=== PATIENT | female | born 1970 | race Caucasian/White ===

== ENCOUNTER → 2017-01-18 | Outpatient (CLI) | payer OTHER ==
[~2017-01-18] MED LIST: ASPI1TAB; ATRV10T; FLT11013; GFN600TCR; IMMODIUM; LVT.05T; METH57CR; MULT-608; OMEP-10; PRAM0.5T4; SIME62.5; VERA120T2; WHEA1POW; [UNRECOGNIZED DRUG - CODE]
--- NOTE | 2017-01-18 11:31 | Diagnostic Imaging Report ---
INDICATION: Screening mammogram. COMPARISON: 11/15/2015. TECHNIQUE: Digital screening mammography was obtained with CAD. 3-dimensional tomosynthesis was reviewed. FINDINGS: The breast tissue is heterogeneously dense. No masses or suspicious calcifications are seen. IMPRESSION: Stable screening mammogram. No malignancy. ACR BI-RADS Category 1: Negative. Result letter will be mailed to the patient. Note: At least 10% of breast cancer is not imaged by mammography. Dictated by: Dictated on workstation # [id number]
== END ==
LOC: RAD 07:57
PROVIDERS: ATTEND Family Medicine
DX: Z12.31 Encounter for screening mammogram for malignant neoplasm of breast (principal)
CPT/HCPCS: 77067

== ENCOUNTER → 2017-03-31 | Outpatient (CLI) | payer OTHER | LOC: CARD 11:24 | PROVIDERS: ATTEND Family Medicine | DX: R01.1 Cardiac murmur, unspecified (principal) | CPT/HCPCS: 93306 ==

== ENCOUNTER → 2018-04-27 | Outpatient (CLI) | payer OTHER ==
[~2018-04-27] MED LIST changes: +RT-ALBUTEROL SULF 2.5 MG/3 ML PRE-MIX VIAL INH ONE
== END ==
LOC: RT 08:15
PROVIDERS: ATTEND Nurse Practitioner Family
DX: J45.909 Unspecified asthma, uncomplicated (principal); R06.00 Dyspnea, unspecified; G47.10 Hypersomnia, unspecified; K21.9 Gastro-esophageal reflux disease without esophagitis
CPT/HCPCS: 94060; 94726; 94729

== ENCOUNTER 2018-04-28 08:00 | Outpatient (CLI) | payer OTHER ==
[~2018-04-28 08:00] MED LIST changes: -RT-ALBUTEROL SULF 2.5 MG/3 ML PRE-MIX VIAL INH ONE
== END 2018-04-28 08:30 | disposition home or self-care (01) ==
LOC: SLEEP 08:00
PROVIDERS: ATTEND Nurse Practitioner Family
DX: J45.909 Unspecified asthma, uncomplicated (principal); R06.00 Dyspnea, unspecified; J30.2 Other seasonal allergic rhinitis; G47.10 Hypersomnia, unspecified; K21.9 Gastro-esophageal reflux disease without esophagitis; R06.83 Snoring

== ENCOUNTER → 2019-05-03 | Outpatient (CLI) | payer OTHER ==
[~2019-05-03] MED LIST changes: +RT-ALBUTEROL SULF 2.5 MG/3 ML PRE-MIX VIAL INH ONE
== END ==
LOC: RT 12:51
PROVIDERS: ATTEND Nurse Practitioner Family
DX: J44.9 Chronic obstructive pulmonary disease, unspecified (principal); J30.2 Other seasonal allergic rhinitis
CPT/HCPCS: 94060; 94726; 94729

== ENCOUNTER → 2019-12-15 | Outpatient (CLI) | payer OTHER ==
[~2019-12-15] MED LIST changes: +CATHETER FLUSH 10 ML SYR IV PRN; +HOLD METFORMIN - RECEIVED CONTRAST 20 ML VIAL IV SCH; +IOHEXOL 350 MG/ML 100 ML (OMNIPAQUE 350) VIAL IV ONE; +NS 100 ML (IVPB) BAG IV ONE; -RT-ALBUTEROL SULF 2.5 MG/3 ML PRE-MIX VIAL INH ONE
--- NOTE | 2019-12-15 09:29 | Diagnostic Imaging Report ---
PROCEDURE: CT angiography of the chest with contrast. TECHNIQUE: Multiple contiguous axial images were obtained through the chest after uneventful bolus administration of intravenous contrast. 3D reconstructed CTA MIP acquisitions were also performed. Auto Exposure Controls were utilized during the CT exam to meet ALARA standards for radiation dose reduction. INDICATION: Chest pain and shortness of areas as well as headache. No prior CT studies available for comparison. FINDINGS: Evaluation of the pulmonary arterial system is without evidence of thromboembolism. No filling defects are seen within central, lobar or segmental pulmonary arterial branches. The ascending thoracic aorta is mildly prominent measuring 4.1 cm AP. Transverse and descending thoracic aorta are normal caliber. There is no dissection. Note is made of an aberrant right subclavian artery, a normal variant. No pericardial or pleural fluid is detected. No pulmonary infiltrate, nodule or mass is detected. The upper abdomen is unremarkable. IMPRESSION: 1. No evidence of pulmonary embolism or thoracic aortic dissection. There is mild prominence of the ascending thoracic aorta. Follow-up could be obtained. Dictated by: Dictated on workstation # [id number]
== END ==
LOC: RAD 08:45
PROVIDERS: ATTEND Nurse Practitioner Family
DX: R07.9 Chest pain, unspecified (principal); R06.02 Shortness of breath; R51 Headache
CPT/HCPCS: 71275

== ENCOUNTER → 2020-01-04 | Outpatient (CLI) | payer OTHER ==
[~2020-01-04] MED LIST changes: -CATHETER FLUSH 10 ML SYR IV PRN; -HOLD METFORMIN - RECEIVED CONTRAST 20 ML VIAL IV SCH; -IOHEXOL 350 MG/ML 100 ML (OMNIPAQUE 350) VIAL IV ONE; -NS 100 ML (IVPB) BAG IV ONE
== END ==
LOC: CARD 13:01
PROVIDERS: ATTEND Internal Medicine Cardiovascular Disease
DX: I51.7 Cardiomegaly (principal); E78.5 Hyperlipidemia, unspecified
CPT/HCPCS: 93306

== ENCOUNTER → 2020-01-05 | Outpatient (CLI) | payer OTHER ==
[~2020-01-05] VITALS: Ht 152 cm; Wt 87.0 kg
[~2020-01-05] MED LIST changes: +CATHETER FLUSH 10 ML SYR IV PRN; +REGADENOSON 0.4 MG/5 ML SYR (LEXISCAN) IV ONE
[2020-01-05 08:58] VITALS: BP 143/98
--- NOTE | 2020-01-05 16:57 | STRESS TEST ---
DATE OF SERVICE: 01/05/2020 RESTING AND POST REGADENOSON TECHNETIUM-99M TETROFOSMIN SPECT IMAGING ORDERING PHYSICIAN: Dr. Holland. PRIMARY PHYSICIAN: Dr. Castillo. CLINICAL DIAGNOSIS: Palpitations, chest discomfort. Baseline images were carried out after injection of 10.96 mCi of technetium-99m Tetrofosmin. This was followed by 0.4 mg regadenoson and 29.7 mCi of technetium-99m Tetrofosmin for stress imaging. The electrocardiogram showed sinus rhythm at baseline. It did not change significantly with the regadenoson infusion. On the electrocardiogram, V2 appears to be misplaced, but there is no significant electrocardiographic change with the regadenoson infusion. The patient tolerated the procedure well. Review of images at rest and following stress does not indicate any significant perfusion defects consistent with myocardial ischemia or infarction. Some degree of diaphragmatic attenuation seen both at rest and following regadenoson infusion. Gated images show normal global left ventricular systolic function with normal regional wall motion. Left ventricular ejection fraction is calculated to be 71%. Left ventricular end diastolic volume is 37 mL. TID is absent (1.19). CONCLUSIONS: 1. No evidence of any significant myocardial ischemia or infarction on this study. 2. Normal regional wall motion. 3. Normal global left ventricular systolic function with a calculated ejection fraction 71%. Job ID: [id number] DocumentID: [id number] Dictated Date: 01/05/2020 12:52:08 Fire Sprinkler Designer Date: 01/05/2020 16:57:03 Dictated By: CHRIS HOLLAND MD, MA, FACP, FACC,
== END ==
LOC: CARD 07:02
PROVIDERS: ATTEND Internal Medicine Cardiovascular Disease
DX: E78.5 Hyperlipidemia, unspecified (principal); R00.2 Palpitations; R07.89 Other chest pain
CPT/HCPCS: 78452; 93017; A9502

== ENCOUNTER → 2020-01-19 | Outpatient (CLI) | payer OTHER ==
[~2020-01-19] MED LIST changes: -CATHETER FLUSH 10 ML SYR IV PRN; -REGADENOSON 0.4 MG/5 ML SYR (LEXISCAN) IV ONE
== END ==
LOC: CARD 13:30
PROVIDERS: ATTEND Nurse Practitioner Family
DX: R00.2 Palpitations (principal)
CPT/HCPCS: 93225; 93226

== ENCOUNTER 2020-08-15 12:56 | Outpatient (CLI) | payer OTHER ==
[~2020-08-15] VITALS: Ht 152.4 cm; Wt 84.9 kg
[2020-08-15] MEDS ORDERED: FAMO20TA3 PO (14:17)
[2020-08-15] MEDS ORDERED: SIMV20TA26 PO (14:17)
[2020-08-15] MEDS ORDERED: LEVO25CA4 PO (14:17)
[2020-08-15] MEDS ORDERED: RT-ALBUINH IH (14:17)
[2020-08-15] MEDS ORDERED: PRAM0.5T9 PO (14:17)
[2020-08-15] MEDS ORDERED: GUAI600T43 PO (14:17)
[2020-08-15] MEDS ORDERED: FLUT9.9S NS (14:17)
[2020-08-15] MEDS ORDERED: BUDE10.22 IH (14:17)
[2020-08-15] MEDS ORDERED: MONT10TA21 PO (14:17)
[2020-08-15] MEDS ORDERED: MV-M1TAB20 PO (14:17)
[2020-08-15] MEDS ORDERED: OMEP20CA18 PO (14:17)
[2020-08-15] MEDS ORDERED: CETI10TA49 PO (14:17)
[2020-08-15] MEDS ORDERED: PEDI300T11 PO (14:17)
== END 2020-08-15 14:38 | disposition home or self-care (01) ==
LOC: PREOP 12:56 → EDSTATUS 08-16 09:30
PROVIDERS: ATTEND Internal Medicine
DX: Z01.818 Encounter for other preprocedural examination (principal)

== ENCOUNTER 2020-08-23 07:29 | Day surgery (SDC) | payer OTHER ==
--- NOTE | 2020-08-12 08:03 | HISTORY AND PHYSICAL ---
DATE OF SERVICE: COLONOSCOPY HISTORY AND PHYSICAL DATE OF ADMISSION: 08/23/2020. REFERRING PRIMARY CARE PHYSICIAN: Jenniffer Badillo APRN. HISTORY OF PRESENT ILLNESS: The patient was referred for screening colonoscopy. She seems to be at higher than average risk as her father was diagnosed with colon cancer at the age of 47 roughly and with the colon cancer at the age of 49. She also had a grandfather and uncle on her father's side who had colon cancer. They were diagnosed with colon cancer, she believes, in their 60s. I performed her first colonoscopy six years ago. Since that time, she had no evidence for neoplasia. She had one small mid ascending colonic diverticulum at that time with no other abnormalities being noted. She reports intermittent abdominal cramping and some intermittent mild diarrhea symptoms suggestive of irritable bowel - D. She has just been started on Xifaxan and reports no problems with medications thus far, this is just her second day. She has noted no melena or bright red blood per rectum. PAST MEDICAL HISTORY: Significant for VSD repair at the age of [age]. She has a history of scoliosis, has a history of gastroesophageal reflux that has been under control on omeprazole. She had an EGD six years ago as well, which revealed no evidence for Cbeallos's change or erosive esophagitis. She reports restless leg syndrome. She states this chronically runs a mildly high white count and platelet count and has Milla's thyroiditis. PAST SURGICAL HISTORY: Other than ASD repair, she has had bilateral inguinal hernia repair at the age of 2 and tonsillectomy at the age of 4, hysterectomy and bilateral oophorectomy in 2008 for benign reasons. SOCIAL HISTORY: She is employed, with no past smoking history and no significant alcohol intake history. FAMILY HISTORY: As noted in the HPI. REVIEW OF SYSTEMS: CONSTITUTIONAL: The patient denies night sweats, chills, fever, change in weight. GASTROINTESTINAL: As noted in the history of present illness. CARDIOVASCULAR: The patient denies chest pain, syncope, presyncope, orthopnea, PND or pedal edema. PULMONARY: The patient denies cough, dyspnea at rest or dyspnea on exertion and denies wheezing. PHYSICAL EXAMINATION: GENERAL: Reveals a pleasant white female, who appeared to be in acute distress. VITAL SIGNS: Weight 179.4 pounds, heart rate 198 pounds, and blood pressure 120/80. HEENT: Unremarkable. CHEST: Clear. CARDIOVASCULAR: Reveals a regular rate and rhythm with a soft 1 to 2/6 systolic ejection murmur heard best at the left lower sternal border without evidence of S3 or S4. ABDOMEN: Soft, supple without mass, organomegaly or tenderness. No bruits noted. EXTREMITIES: Reveal no cyanosis, clubbing or edema. ASSESSMENT AND PLAN: The patient is set up for screening colonoscopy higher than average risk due to father at relatively young age, diagnosed with colon cancer at 47 and a grandfather and uncle also on the father's side diagnosed with colon cancer in their 60s. I thank you for the referral of this pleasant lady. Job ID: [id number] DocumentID: [id number] Dictated Date: 08/06/2020 10:43:40 Sales And Service Representative Date: 08/06/2020 11:26:18 Dictated By: BEATA JONES MD MTDD
[~2020-08-23] VITALS: Ht 152.4 cm; Wt 85.0 kg
[~2020-08-23 07:29] MED LIST changes: +BUDE10.22 IH; +CETI10TA49 PO; +FAMO20TA3 PO; +FLUT9.9S NS; +GUAI600T43 PO; +LACTATED RINGERS 1,000 ML IV ONE; +LEVO25CA4 PO; +MONT10TA21 PO; +MV-M1TAB20 PO; +OMEP20CA18 PO; +PEDI300T11 PO; +PRAM0.5T9 PO; +RT-ALBUINH IH; +SIMV20TA26 PO
[2020-08-23] MEDS ORDERED: LACTATED RINGERS 1,000 ML IV STA (07:36)
[2020-08-23] MEDS ORDERED: LIDOCAINE JELLY 2% 6 ML SYRINGE MM PRN (07:45)
[2020-08-23 07:53] VITALS: BP 150/100
[2020-08-23] MEDS ORDERED: MIDAZOLAM 2 MG/2 ML (VERSED) VIAL ONE (08:00)
[2020-08-23] MEDS ORDERED: PROPOFOL INJECTION 50 ML IV ONE (08:00)
[2020-08-23] MEDS ORDERED: LIDOCAINE JELLY 2% 6 ML SYRINGE ONE (08:17)
--- NOTE | 2020-08-23 08:49 | Pre-Op Note & Conscious Sedat ---
Pre-Operative Progress Note H&P Reviewed The H&P was reviewed, patient examined and no changes noted. Date H&P Reviewed: Aug 23, 2020 Time H&P Reviewed: 07:55 Conscious Sedation Pre-Proced ASA Score 2 For ASA 3 and 4: Consider anesthesia and medical clearance. Also, for patients with a history of failed moderate sedation consider anesthesia. Airway Lungs Heart ASA score ASA 1: a normal healthy patient ASA 2: a patient with a mild systemic disease (mid diabetes, controlled hypertension, obesity ASA 3: a patient with a severe systemic disease that limits activity (angina, COPD, prior Myocardial infarction) ASA 4: a patient with an incapacitating disease that is a constant threat to life (CHF, renal failure) ASA 5: a moribund patient not expected to survive 24 hrs. (ruptured aneurysm) ASA 6: a declared brain- patient whose organs are being harvested. For emergent operations, add the letter E after the classification Mallampati Classification Grade 3 Sedation Plan Analgesia, Amnesia, Plan communicated to team members, Discussed options with patient/fam, Discussed risks with patient/fam The patient is an appropriate candidate to undergo the planned procedure, sedation, and anesthesia. The patient immediately re-assessed prior to indication. BEATA JONES MD Aug 23, 2020 08:49
[2020-08-23 08:50] VITALS: BP 107/60
[2020-08-23 08:55] VITALS: BP 105/60
[2020-08-23 09:00] VITALS: BP 111/73
[2020-08-23 09:20] VITALS: BP 138/102
[2020-08-23 10:20] VITALS: BP 138/102
--- NOTE | 2020-08-23 19:23 | OPERATIVE REPORT ---
DATE OF SERVICE: COLONOSCOPY SUMMARY INDICATION FOR THE PROCEDURE: Screening, family history for colon cancer. DESCRIPTION OF PROCEDURE: The patient was placed in the left lateral decubitus position. Prior to undergoing colonoscopy, digital rectal evaluation was performed. Anal sphincter tone was normal and the perianal reflexes intact. No abnormalities were noted on digital inspection of anal canal or distal rectal vault. The colonoscope was then inserted into the rectum and under direct visualization advanced to cecum. The cecum was identified by identification of the ileocecal valve and cecal strap. Quality of prep was good. The patient did have an irritable bowel type response to air insufflation and colonic manipulation despite Diprivan anesthesia. FINDINGS: A diminutive polyp was noted at the rectosigmoid junction. It was biopsied and ablated with hot forcep with no subsequent blood loss. The sigmoid colon, descending colon, splenic flexure, transverse colon were unremarkable. Present in the distal ascending colon were 2 small diverticulum without evidence for diverticulitis. This was otherwise unremarkable and cecum was unremarkable as well. ASSESSMENT: One diminutive hyperplastic appearing polyp was removed from the rectosigmoid junction. We would advise consideration for repeat screening colonoscopy in 5 years secondary to multiple family members, one first first-degree relative with a history of colon cancer. I thank you for the referral of this pleasant lady. Job ID: [id number] DocumentID: [id number] Dictated Date: 08/23/2020 11:58:52 Underlay Stitcher Date: 08/23/2020 19:21:05 Dictated By: BEATA JONES MD MTDD
== END 2020-08-23 10:20 | disposition home or self-care (01) ==
LOC: ENDO 07:29
PROVIDERS: ATTEND Internal Medicine
DX: Z12.11 Encounter for screening for malignant neoplasm of colon (principal); K63.5 Polyp of colon; K57.30 Diverticulosis of large intestine without perforation or abscess without bleeding; I10 Essential (primary) hypertension; J44.9 Chronic obstructive pulmonary disease, unspecified; F41.9 Anxiety disorder, unspecified; F32.9 Major depressive disorder, single episode, unspecified; E03.9 Hypothyroidism, unspecified; K21.9 Gastro-esophageal reflux disease without esophagitis; G25.81 Restless legs syndrome; E66.9 Obesity, unspecified; Z68.36 Body mass index [BMI] 36.0-36.9, adult; Z79.899 Other long term (current) drug therapy; Z88.2 Allergy status to sulfonamides; Z88.8 Allergy status to other drugs, medicaments and biological substances; Z80.0 Family history of malignant neoplasm of digestive organs

== ENCOUNTER → 2021-04-07 | Outpatient (CLI) | payer OTHER ==
[~2021-04-07] MED LIST changes: -LACTATED RINGERS 1,000 ML IV ONE; +RT-ALBUTEROL SULF 2.5 MG/3 ML PRE-MIX VIAL INH ONE
== END ==
LOC: RT 08:00
PROVIDERS: ATTEND Nurse Practitioner Family
DX: J45.909 Unspecified asthma, uncomplicated (principal)
CPT/HCPCS: 94060; 94726; 94729

== ENCOUNTER 2023-01-12 15:07 | Observation (INO) | payer BC, OTHER ==
[~2023-01-12] VITALS: Ht 152 cm; Wt 77.0 kg
[~2023-01-12 15:07] MED LIST changes: +ALBU8.5H6 IH; -FLUT9.9S NS; +FLUT9.9S NSEACH; +MONT-47 PO; -MONT10TA21 PO; -RT-ALBUINH IH; -RT-ALBUTEROL SULF 2.5 MG/3 ML PRE-MIX VIAL INH ONE
--- NOTE | 2023-01-12 15:46 | ED Cardiac General ---
History of Present Illness General Chief Complaint: Cardiac/General Problems Stated Complaint: LOW HEART RATE - 45 Source: patient Exam Limitations: no limitations (JOYCE MEJIA APRN) History of Present Illness Date Seen by Provider: Jan 12, 2023 Time Seen by Provider: 15:25 Initial Comments 52-year-old female presents to the ER low heart rate in the 40s starting today. She states that all day she has felt "out of it" and exhausted. She states she worked out yesterday, and thought that maybe her O2 saturation was low. States that she used her home pulse ox which showed normal oxygen saturations but heart rate in the 40s. She denies fevers, chest pain, shortness of air. Reports that she feels possibly lightheaded, but more so just feels "out of it." She denies any recent illness. States that a couple days ago she had diarrhea due to her IBS. She does not take any beta-blockers. She does have hypothyroidism. (JOYCE MEJIA APRN) Allergies and Home Medications Allergies Coded Allergies: Sulfa (Sulfonamide Antibiotics) (Verified Allergy, Unknown, 11/14/08) diltiazem (Verified Allergy, Unknown, TAKES VERAPAMIL AT HOME, 11/14/08) Patient Home Medication List Home Medication List Reviewed: Yes (JOYCE MEJIA APRN) Albuterol Sulfate (Ventolin Hfa) 90 Mcg Hfa.aer.ad, 2 PUFF IH Q6H PRN for SHORTNESS OF BREATH, (Reported) Entered as Reported by: SUHAIL STEVENSON on 08/15/201416 Last Action: Reviewed Cetirizine HCl (Zyrtec) 10 Mg Tablet, 10 MG PO DAILY, (Reported) Entered as Reported by: SUHAIL STEVENSON on 08/15/201416 Last Action: Reviewed Cholecalciferol (Vitamin D3) (Vitamin D3) 25 Mcg (1000 Unit) Capsule, 25 MCG PO DAILY, (Reported) Entered as Reported by: EMMIE SUMMERS on 01/14/23 1010 Last Action: Reviewed Cyanocobalamin (Vitamin B-12) (Vitamin B-12) 1,000 Mcg Tab.subl, 1,000 MCG SL DAILY, (Reported) Entered as Reported by: EMMIE SUMMERS on 01/14/23 1010 Last Action: Reviewed Fluticasone Propionate (Flonase Allergy Relief) 50 Mcg/Actuation [place].susp, 1-2 SPRAY NSEACH DAILY, (Reported) Entered as Reported by: SUHAIL STEVENSON on 08/15/201416 Last Action: Reviewed Fluticasone/Umeclidin/Vilanter (Trelegy Ellipta 100-62.5-25) 100-62.5 Blst.w.dev, 1 PUFF INH DAILY, (Reported) Entered as Reported by: EMMIE SUMMERS on 01/14/23 101 Last Action: Reviewed Guaifenesin (Mucinex) 600 Mg Tab.er.12h, 600 MG PO DAILY, (Reported) Entered as Reported by: SUHAIL STEVENSON on 08/15/201416 Last Action: Reviewed Levothyroxine Sodium (Levothyroxine Sodium) 25 Mcg Tablet, 37.5 MG PO DAILY, (Reported) Entered as Reported by: EMMIE SUMMERS on 01/14/231009 Last Action: Reviewed Omeprazole (Omeprazole) 20 Mg Capsule.dr, 20 MG PO DAILY, (Reported) Entered as Reported by: SUHAIL STEVENSON on 08/15/201416 Last Action: Reviewed Pediatric Multivit Comb #25/FA (Flintstones Multivit Chew Tab) 300 Mcg Tab.chew, 1 EA PO DAILY, (Reported) Entered as Reported by: SUHAIL STEVENSON on 08/15/201416 Last Action: Reviewed Simvastatin (Simvastatin) 20 Mg Tablet, 20 MG PO DAILY, (Reported) Entered as Reported by: SUHAIL STEVENSON on 08/15/201416 Last Action: Reviewed Vit C/Zinc Citrate/Elderberry (AMENDIA Immune Health Gummy) 45 Mg-3.75 Mg-50 Mg Tab.chew, 1 EACH PO DAILY, (Reported) Entered as Reported by: EMMIE SUMMERS on 01/14/231009 Last Action: Reviewed Discontinued Medications Budesonide/Formoterol Fumarate (Symbicort 80-4.5 Mcg Inhaler) 10.2 Gm Hfa.aer.ad, 2 PUFF IH DAILY, (Reported) Discontinued Reason: No Longer Taking Entered as Reported by: SUHAIL STEVENSON on 08/15/201416 Last Action: Discontinued Famotidine (Acid Parole Officer (FAMOTIDINE)) 20 Mg Tablet, 20 MG PO HS, (Reported) Discontinued Reason: No Longer Taking Entered as Reported by: SUHAIL STEVENSON on 08/15/201416 Last Action: Discontinued Levothyroxine Sodium (Levothyroxine) 25 Mcg Capsule, 25 MCG PO DAILY, (Reported) Discontinued Reason: No Longer Taking Entered as Reported by: SUHAIL STEVENSON on 08/15/201416 Last Action: Discontinued Montelukast Sodium (Singulair) 10 Mg Tablet, 10 MG PO HS, (Reported) Discontinued Reason: No Longer Taking Entered as Reported by: SUHAIL STEVENSON on 08/15/201416 Last Action: Discontinued Mv-Mn/Iron/FA/Herbal Cmplx#190 (Vitamin D3 Complete Caplet) 1 Each Tablet, 1 EACH PO DAILY, (Reported) Discontinued Reason: No Longer Taking Entered as Reported by: SUHAIL STEVENSON on 08/15/201416 Last Action: Discontinued Pramipexole Di-HCl (Pramipexole Dihydrochloride) 0.5 Mg Tablet, 0.5 MG PO DAILY, (Reported) Discontinued Reason: No Longer Taking Entered as Reported by: SUHAIL STEVENSON on 08/15/201416 Last Action: Discontinued Ropinirole HCl (Ropinirole HCl) 0.25 Mg Tablet, 0.25 MG PO HS, (Reported) Entered as Reported by: EMMIE SUMMERS on 01/14/23 1010 Last Action: Reviewed Review of Systems Review of Systems Constitutional: see HPI (JOYCE MEJIA APRN) Past Hscjteo-Auffcr-Annoud Hx Past Medical History Surgeries: No Respiratory: Yes Asthma, COPD Cardiac: Yes (SLIGHTLY ENLARGED AORTA) Neurological: No Reproductive Disorders: Yes (FIBROID TUMOR) Sexually Transmitted Disease: No Genitourinary: No Gastrointestinal: Yes (IBS- DIARRHEA) Musculoskeletal: No Endocrine: Yes Hypothyroidsim HEENT: No Cancer: No Psychosocial: Yes Anxiety, Depression Blood Disorders: No (JOYCE MEJIA APRN) Family Medical History Colon cancer Physical Exam Vital Signs Vital Signs - First Documented 01/12/23 15:15 Temp 37.1 Pulse 53 Resp 15 B/P (MAP) 121/92 (102) Pulse Ox 97 O2 Delivery Room Air (GABO JC MD) Vital Signs Capillary Refill : (JOYCE MEJIA APRN) Height, Weight, BMI Height: 4'12.00" Weight: 173lbs. oz. 78.432715xj; 36.59 BMI Method: General Appearance: No Apparent Distress, WD/WN Neck: Normal Inspection, Supple Respiratory: Lungs Clear, Normal Breath Sounds, No Accessory Muscle Use, No Respiratory Distress Cardiovascular: Bradycardia (Fluctuates between sinus rhythm and bradycardia arrhythmia) Extremity: Normal Inspection, Normal Range of Motion Neurologic/Psychiatric: Alert, Normal Mood/Affect Skin: Normal Color, Warm/Dry (JOYCE MEJIA APRN) Progress/Results/Core Measures Results/Orders Lab Results Laboratory Tests Test 01/12/23 15:35 Range/Units White Blood Count 12.5 H 4.3-11.0 10^3/uL Red Blood Count 5.21 H 3.80-5.11 10^6/uL Hemoglobin 14.9 11.5-16.0 g/dL Hematocrit 45 35-52 % Mean Corpuscular Volume 87 80-99 fL Mean Corpuscular Hemoglobin 29 25-34 pg Mean Corpuscular Hemoglobin Concent 33 32-36 g/dL Red Cell Distribution Width 13.4 10.0-14.5 % Platelet Count 331 130-400 10^3/uL Mean Platelet Volume 9.5 9.0-12.2 fL Immature Granulocyte % (Auto) 0 % Neutrophils (%) (Auto) 66 42-75 % Lymphocytes (%) (Auto) 24 12-44 % Monocytes (%) (Auto) 6 0-12 % Eosinophils (%) (Auto) 3 0-10 % Basophils (%) (Auto) 0 0-10 % Neutrophils # (Auto) 8.3 H 1.8-7.8 X 10^3 Lymphocytes # (Auto) 3.0 1.0-4.0 X 10^3 Monocytes # (Auto) 0.7 0.0-1.0 X 10^3 Eosinophils # (Auto) 0.4 H 0.0-0.3 10^3/uL Basophils # (Auto) 0.0 0.0-0.1 10^3/uL Immature Granulocyte # (Auto) 0.0 0.0-0.1 10^3/uL Prothrombin Time 13.0 12.2-14.7 SEC INR Comment 1.0 0.8-1.4 Activated Partial Thromboplast Time 38 H 24-35 SEC Sodium Level 141 135-145 MMOL/L Potassium Level 3.7 3.6-5.0 MMOL/L Chloride Level 108 H 98-107 MMOL/L Carbon Dioxide Level 22 21-32 MMOL/L Anion Gap 11 5-14 MMOL/L Blood Urea Nitrogen 18 7-18 MG/DL Creatinine 0.83 0.60-1.30 MG/DL Estimat Glomerular Filtration Rate 84 BUN/Creatinine Ratio 22 Glucose Level 88 70-105 MG/DL Calcium Level 9.8 8.5-10.1 MG/DL Corrected Calcium 9.5 8.5-10.1 MG/DL Magnesium Level 2.1 1.6-2.4 MG/DL Total Bilirubin 0.7 0.1-1.0 MG/DL Aspartate Amino Transf (AST/SGOT) 17 5-34 U/L Alanine Aminotransferase (ALT/SGPT) 18 0-55 U/L Alkaline Phosphatase 68 40-136 U/L Troponin I < 0.028 <0.028 NG/ML Total Protein 7.7 6.4-8.2 GM/DL Albumin 4.4 3.2-4.5 GM/DL Thyroid Stimulating Hormone (TSH) 1.17 0.35-4.94 UIU/ML (GABO JC MD) My Orders Orders - GABO JC MD Ekg Tracing (01/12/23 15:15) (GABO JC MD) Vital Signs/I&O 01/12/23 15:15 Temp 37.1 Pulse 53 Resp 15 B/P (MAP) 121/92 (102) Pulse Ox 97 O2 Delivery Room Air (GABO JC MD) Progress Progress Note : Progress Note Patient seen and evaluated, resting comfortably in bed, no acute distress. Based on exam and symptoms, work-up initiated including CBC, CMP, magnesium, troponin, TSH, EKG. 1620 personnel monitor has been showing a possible sinus block. Heart rate goes into the 40s, as low as 38, with a rhythm that does not have a P wave. I called and spoke with Dr. Pulido, patient's card lacer jacquard, regarding patient's abnormal rhythm. He is going to have Dr. Baugh, the card lacer jacquard on-call, come down and see the patient. Dr. Holland and Dr. Baugh both agree that patient should be admitted for observation. Dr. Baugh states that patient is having sinus pauses with a junctional escape rhythm. They would like patient to be n.p.o. at midnight in case she requires a pacemaker placement tomorrow. They would like her in the ICU or stepdown unit. Labs reviewed. CBC shows slightly elevated WBC 12.5. CMP grossly normal. Troponin negative. TSH normal. Coags normal. [address] Olguin, hospitalist, for admission. She agrees to admit patient. She will place admission orders. (JOYCE MEJIA APRN) Initial ECG Impression Date: Jan 12, 2023 Initial ECG Impression Time: 15:27 Initial ECG Rate: 60 Initial ECG Rhythm: Normal Sinus (Occasional sinus pause) Initial ECG Intervals: Normal Initial ECG Impression: Nonspecific Changes (Sinus pause) Initial ECG Comparisson: Changed (JOYCE MEJIA APRN) Departure Communication (Admissions) Time/Spoke to Admitting Phy: 16:42 Dr. Olguin, see progress note. Time/Spoke to Consulting Phy: 16:[address] Baugh, cardiology, see progress note. (JOYCE MEJIA APRN) Impression Primary Impression: Bradyarrhythmia Disposition: ADMITTED INPATIENT Condition: Stable Admissions Decision to Admit Reason: Admit from ER (General) Decision to Admit/Date: Jan 12, 2023 Time/Decision to Admit Time: 16:20 (JOYCE MEJIA APRN) Departure-Patient Inst. Referrals: SULLY MUÑOZ MD (PCP/Family) Primary Care Physician ATTENDING PHYSICIAN NOTE: I was physically present as attending physician in the emergency department during the care of this patient, but I was not directly involved in the decision making or delivery of care for this patient. (GABO JC MD) JOYCE MEJIA APRN Jan 12, 2023 15:46 GABO JC MD Jan 17, 2023 05:00
[2023-01-12 15:48] LABS: BASOPHILS % (AUTO) 0 % (0-10); EOSINOPHILS # (AUTO) 0.4 10^3/uL (0.0-0.3); EOSINOPHILS % (AUTO) 3 % (0-10); HEMATOCRIT 45 % (35-52); HEMOGLOBIN 14.9 g/dL (11.5-16.0); LYMPHOCYTES % (AUTO) 24 % (12-44); MEAN CORPUSCULAR HEMOGLOBIN 29 pg (25-34); MEAN CORPUSCULAR HGB CONC 33 g/dL (32-36); MEAN CORPUSCULAR VOLUME 87 fL (80-99); MEAN PLATELET VOLUME 9.5 fL (9.0-12.2); MONOCYTES # (AUTO) 0.7 X 10^3 (0.0-1.0); MONOCYTES % (AUTO) 6 % (0-12); NEUTROPHILS # (AUTO) 8.3 X 10^3 (1.8-7.8); NEUTROPHILS % (AUTO) 66 % (42-75); PLATELET COUNT 331 10^3/uL (130-400); WHITE BLOOD COUNT 12.5 10^3/uL (4.3-11.0)
[2023-01-12 15:57] LABS: ALBUMIN 4.4 GM/DL (3.2-4.5); CHLORIDE 108 MMOL/L (98-107); POTASSIUM 3.7 MMOL/L (3.6-5.0); SODIUM 141 MMOL/L (135-145)
[2023-01-12 15:59] LABS: CALCIUM 9.8 MG/DL (8.5-10.1)
[2023-01-12 16:00] LABS: GLUCOSE 88 MG/DL (70-105); TOTAL PROTEIN 7.7 GM/DL (6.4-8.2)
[2023-01-12 16:01] LABS: CARBON DIOXIDE 22 MMOL/L (21-32)
[2023-01-12 16:02] LABS: BILIRUBIN,TOTAL 0.7 MG/DL (0.1-1.0)
[2023-01-12 16:03] LABS: ALKALINE PHOSPHATASE 68 U/L (40-136); CREATININE SERUM 0.83 MG/DL (0.60-1.30); GFR ESTIMATED 84
[2023-01-12 16:04] LABS: BUN/CREATININE RATIO 22
[2023-01-12 16:06] LABS: ALANINE AMINOTRANSFERASE 18 U/L (0-55); MAGNESIUM 2.1 MG/DL (1.6-2.4)
[2023-01-12] MEDS ORDERED: NS IV 1000 ML 1,000 ML IV SCH (16:30)
--- NOTE | 2023-01-12 16:44 | Consultation-Cardiology ---
HPI-Cardiology Cardiology Consultation Date of Consultation 01/12/23 Date of Admission Time Seen by Provider: 16:39 Indication: Symptomatic bradycardia HPI 52-year-old lady with history of hypothyroidism. Hyperlipidemia. Patient has been having generalized weakness and loss of energy for the last 24 hours, came into the emergency room and noted to have sinus rhythm with multiple episodes of bradycardia and escape junctional rhythm. She denied any full syncope. No chest pain. No palpitation. Home Medications & Allergies Allergies: Coded Allergies: Diltiazem (Verified Allergy, Unknown, TAKES VERAPAMIL AT HOME, 11/14/08) Sulfa (Sulfonamide Antibiotics) (Verified Allergy, Unknown, 11/14/08) Home Medication List Reviewed: Yes [facility] Hx Patient Social History Marital Status: Employed/Student: employed 2[employer] Smoke Exposure: No Recent Hopitalizations: No Alcohol Use?: Yes Past Medical History Discussed below Family Medical History Significant Family History: No Pertinent Family Hx Family History: Colon cancer Review of Systems-General Review of Systems Constitutional: see HPI, malaise, weakness EENTM: see HPI, no symptoms reported Respiratory: see HPI; No cough; dyspnea on exertion; No hemoptysis, No orthopnea, No phlegm, No short of breath, No stridor, No wheezing, No other Cardiovascular: see HPI; No chest pain, No edema, No Hx of Intervention, No pal pitations, No syncope, No vascular heart diseas, No other Gastrointestinal: no symptoms reported, see HPI Genitourinary: no symptoms reported, see HPI Musculoskeletal: no symptoms reported, see HPI Skin: no symptoms reported, see HPI Psychiatric/Neurological: No Symptoms Reported, See HPI Reviewed Test Results Reviewed Test Results Lab Laboratory Tests Test 01/12/23 15:35 Range/Units White Blood Count 12.5 H 4.3-11.0 10^3/uL Red Blood Count 5.21 H 3.80-5.11 10^6/uL Hemoglobin 14.9 11.5-16.0 g/dL Hematocrit 45 35-52 % Mean Corpuscular Volume 87 80-99 fL Mean Corpuscular Hemoglobin 29 25-34 pg Mean Corpuscular Hemoglobin Concent 33 32-36 g/dL Red Cell Distribution Width 13.4 10.0-14.5 % Platelet Count 331 130-400 10^3/uL Mean Platelet Volume 9.5 9.0-12.2 fL Immature Granulocyte % (Auto) 0 % Neutrophils (%) (Auto) 66 42-75 % Lymphocytes (%) (Auto) 24 12-44 % Monocytes (%) (Auto) 6 0-12 % Eosinophils (%) (Auto) 3 0-10 % Basophils (%) (Auto) 0 0-10 % Neutrophils # (Auto) 8.3 H 1.8-7.8 X 10^3 Lymphocytes # (Auto) 3.0 1.0-4.0 X 10^3 Monocytes # (Auto) 0.7 0.0-1.0 X 10^3 Eosinophils # (Auto) 0.4 H 0.0-0.3 10^3/uL Basophils # (Auto) 0.0 0.0-0.1 10^3/uL Immature Granulocyte # (Auto) 0.0 0.0-0.1 10^3/uL Prothrombin Time 13.0 12.2-14.7 SEC INR Comment 1.0 0.8-1.4 Activated Partial Thromboplast Time 38 H 24-35 SEC Sodium Level 141 135-145 MMOL/L Potassium Level 3.7 3.6-5.0 MMOL/L Chloride Level 108 H 98-107 MMOL/L Carbon Dioxide Level 22 21-32 MMOL/L Anion Gap 11 5-14 MMOL/L Blood Urea Nitrogen 18 7-18 MG/DL Creatinine 0.83 0.60-1.30 MG/DL Estimat Glomerular Filtration Rate 84 BUN/Creatinine Ratio 22 Glucose Level 88 70-105 MG/DL Calcium Level 9.8 8.5-10.1 MG/DL Corrected Calcium 9.5 8.5-10.1 MG/DL Magnesium Level 2.1 1.6-2.4 MG/DL Total Bilirubin 0.7 0.1-1.0 MG/DL Aspartate Amino Transf (AST/SGOT) 17 5-34 U/L Alanine Aminotransferase (ALT/SGPT) 18 0-55 U/L Alkaline Phosphatase 68 40-136 U/L Troponin I < 0.028 <0.028 NG/ML Total Protein 7.7 6.4-8.2 GM/DL Albumin 4.4 3.2-4.5 GM/DL Thyroid Stimulating Hormone (TSH) 1.17 0.35-4.94 UIU/ML Physical Exam Physical Exam Vital Signs Vital Signs - First Documented 01/12/23 15:15 Temp 37.1 Pulse 53 Resp 15 B/P (MAP) 121/92 (102) Pulse Ox 97 O2 Delivery Room Air Capillary Refill : Less Than 3 Seconds Height, Weight, BMI Height: 4'12.00" Weight: 173lbs. oz. 78.003816mm; 32.00 BMI Method: General Appearance: No Apparent Distress, WD/WN Eyes: Bilateral Eye Normal Inspection, Bilateral Eye PERRL, Bilateral Eye EOMI HEENT: PERRL/EOMI, TMs Normal, Normal ENT Inspection, Pharynx Normal, Moist Mucous Membranes Neck: Normal Inspection, Supple Respiratory: Lungs Clear, Normal Breath Sounds, No Accessory Muscle Use, No Respiratory Distress Cardiovascular: Bradycardia (Fluctuates between sinus rhythm and bradycardia arrhythmia) Gastrointestinal: Normal Bowel Sounds, No Organomegaly, No Pulsatile Mass, Non Tender, Soft Back: Normal Inspection, No CVA Tenderness, No Vertebral Tenderness Extremity: Normal Capillary Refill, Normal Inspection, Normal Range of Motion, Non Tender, No Calf Tenderness, No Pedal Edema Neurologic/Psychiatric: Alert, Normal Mood/Affect Skin: Normal Color, Warm/Dry Lymphatic: No Adenopathy A/P-Cardiology Admission Diagnosis Symptomatic bradycardia Sinus node dysfunction Hyperlipidemia Chest pain Assessment/Plan Symptomatic bradycardia Generalized fatigue and loss of energy, no syncope was reported Patient is currently in sinus rhythm with a heart rate in the 60s with multiple episode of severe bradycardia and escape junctional rhythm with a heart rate in the upper 30s. Blood pressure is stable, will give IV fluid Continue to monitor and will consider pacemaker evaluation History of palpitation, had a Holter [place] [address] Montoya reported as sinus rhythm and sinus arrhythmia with isolated and coupled PACs. History of chest pain, no active chest pain was reported, stress test was done in 2019 showing no ischemia or infarction and ejection fraction 71% Stress test done in [facility] in May 2022 was abnormal Cardiac catheterization done by Dr. Tariq in May 2022 with left dominant system without any angiographic abnormality or stenosis with EF 55% 2D echo was done in [facility] in May 2022 with a EF 65 to 70%. Prominent ascending aorta measuring 4.1, last CT angio reported in November 2019. Obesity, BMI 33, patient has lost significant weight and still working on weight loss Hyperlipidemia, maintained on simvastatin, monitor lipids Gastroesophageal reflux disease. History of hypertension, her blood pressure has improved after her weight loss. Continue to monitor JOSY BUSTOS MD Jan 12, 2023 16:44
[2023-01-12] MEDS ORDERED: ANTACID SUSPENSION 30 ML UDC PO PRN (18:00)
[2023-01-12] MEDS ORDERED: ONDANSETRON INJECTION 4 MG/2 ML (SDV) IV PRN (18:00)
[2023-01-12] MEDS ORDERED: NS IV 500 ML 500 ML IV PRN (18:00)
[2023-01-12] MEDS ORDERED: LACTULOSE SYRUP 10GM/15ML 30ML UDC PO PRN (18:00)
[2023-01-12] MEDS ORDERED: MILK OF MAGNESIA 400 MG/5 ML 30 ML UDC PO PRN (18:00)
[2023-01-12] MEDS ORDERED: ONDANSETRON 4 MG ORAL DISSOLVE TABLET PO PRN (18:00)
[2023-01-12] MEDS ORDERED: CALCIUM CARBONATE 500 MG CHEW TABLET PO PRN (18:00)
[2023-01-12] MEDS ORDERED: oxyCODONE IMMEDIATE RELEASE 5 MG TABLET PO PRN (18:00)
[2023-01-12] MEDS ORDERED: BISACODYL 10 MG SUPPOSITORY PR PRN (18:00)
[2023-01-12] MEDS ORDERED: ACETAMINOPHEN 325 MG TABLET PO PRN (18:00)
[2023-01-12] MEDS ORDERED: diphenhydrAMINE 25 MG TABLET PO PRN (18:00)
[2023-01-12] MEDS ORDERED: HYDROmorphone INJECTION 2 MG/ML VIAL IV PRN (18:00)
[2023-01-12] MEDS ORDERED: diphenhydrAMINE INJ 50 MG/ML VIAL IVP PRN (18:00)
[2023-01-12] MEDS ORDERED: MELATONIN 3 MG TABLET PO PRN (18:00)
[2023-01-12] MEDS ORDERED: polyethylene glycoL POWDER 17 GM (MIRALAX) PACK PO PRN (18:00)
[2023-01-12] MEDS ORDERED: ALPRAZolam 1 MG TABLET PO PRN (18:00)
[2023-01-12] MEDS ORDERED: ALPRAZolam 0.5 MG TABLET PO PRN (18:30)
[2023-01-12] MEDS: ENOXAPARIN 40 MG/0.4 ML SYRINGE SC SCH (18:40)
[2023-01-12] MEDS: NS IV 1000 ML 1,000 ML IV SCH (18:44)
--- NOTE | 2023-01-12 19:00 | Tele-ICU Consult ---
History of Present Illness History of Present Illness Date Seen by Provider: Jan 12, 2023 Time Seen by Provider: 19:00 Reason for Visit: Symptomatic bradycardia History of Present Illness (Tele-ICU Physician , consultation as per request of PCP Service provided via interactive audio and video telecommunSolveBoard E-CARE system to a patient admitted to ICU bed in [facility]. Available chart/ vitals / labs / Images reviewed H&P is from ER notes Patient's information available about PMH, Shx, Fhx allergy reviewed inEMR. ROS as per chart and RN report Now in ICU, hemodynamically stable Video assessment done using teleICU camera, rest of exam as per RN Discussed with RN. Hospital course: A/P Symptomatic bradycardia and escape junctional rhythm - in sinus now , asymptomatic - cards consulted - IVF given obesity GERD VTE Prophylaxis: minnie Stress Ulcer Prophylaxis: na Plans in collaboration with bedside consultants and IM MDs. Discussed with RN to reach out if any questions or concerns A total of 5 minutes of critical care time was devoted to this patient today, required to treat and/or prevent further deterioration of critical care condition ( as above ) . I am remotely monitoring this patient from another state. I am unable to do the bedside exam, and history/physical and pertinent information is taken from other notes in the computer and bedside staff. . Allergies and Home Medications Allergies Coded Allergies: Sulfa (Sulfonamide Antibiotics) (Verified Allergy, Unknown, 11/14/08) diltiazem (Verified Allergy, Unknown, TAKES VERAPAMIL AT HOME, 11/14/08) Home Medications Albuterol Sulfate 1 Puff Puff, 2 PUFF IH PRN, (Reported) 1 PUFF = 90 MCG Budesonide/Formoterol Fumarate 10.2 Gm Hfa.aer.ad, 2 PUFF IH DAILY, (Reported) Cetirizine HCl 10 Mg Tablet, 10 MG PO DAILY, (Reported) Famotidine 20 Mg Tablet, 20 MG PO HS, (Reported) Fluticasone Propionate 9.9 Ml [place].susp, 2 SPRAY NS DAILY, (Reported) 2 SPRAYS PER NOSTRIL DAILY X 2 DAYS THEN 1 SPRAY DAILY Guaifenesin 600 Mg Tab.er.12h, 600 MG PO DAILY, (Reported) Levothyroxine Sodium 25 Mcg Capsule, 25 MCG PO DAILY, (Reported) Montelukast Sodium 10 Mg Tablet, 10 MG PO HS, (Reported) Mv-Mn/Iron/FA/Herbal Cmplx#190 1 Each Tablet, 1 EACH PO DAILY, (Reported) Omeprazole 20 Mg Capsule.dr, 20 MG PO DAILY, (Reported) Pediatric Multivit Comb #25/FA 300 Mcg Tab.chew, 300 MCG PO DAILY, (Reported) Pramipexole Di-HCl 0.5 Mg Tablet, 0.5 MG PO DAILY, (Reported) Simvastatin 20 Mg Tablet, 20 MG PO DAILY, (Reported) Past Medical/Social/Family Hx Patient Social History Marrital Status: Employed/Student: employed Tobacco Use?: No Substance use?: No Alcohol Use?: Yes Alcohol type: Wine, Other Alcohol Frequency: Rarely 3x per year. Immunizations Up To Date First/Initial COVID19 Vaccinat: 07/2020 Second COVID19 Vaccination Matteo: 07/2020 Current Status Communicates: Verbally Primary Language: Greek Preferred Spoken Language: Greek Is interpretation needed?: No Review of Systems Constitutional: other Focused Exam Height, Weight, BMI Height: 4'12.00" Weight: 173lbs. oz. 78.589814cr; 32.00 BMI Method: Exam Exam Patient acknowledged, consented, and participated in this virtual visit which was conducted using real time audio/video Vital Signs Date Time Temp Pulse Resp B/P (MAP) Pulse Ox O2 Delivery O2 Flow Rate FiO2 01/12/23 18:04 76 01/12/23 18:03 76 16 152/108 (123) 97 Room Air 01/12/23 17:52 80 19 152/99 97 Room Air 01/12/23 15:15 37.1 53 15 121/92 (102) 97 Room Air Height & Weight Height: 4'12.00" Weight: 173lbs. oz. 78.362323ou; 32.00 BMI Method: General Appearance: No Apparent Distress, WD/WN HEENT: PERRL/EOMI, TMs Normal, Normal ENT Inspection, Pharynx Normal, Moist Mucous Membranes Neck: Normal Inspection, Supple Respiratory: Lungs Clear, Normal Breath Sounds, No Accessory Muscle Use, No Respiratory Distress Cardiovascular: Bradycardia (Fluctuates between sinus rhythm and bradycardia arrhythmia) Capillary Refill: Less Than 3 Seconds Extremity: Normal Capillary Refill, Normal Inspection, Normal Range of Motion, Non Tender, No Calf Tenderness, No Pedal Edema Neurologic/Psychiatric: Alert, Normal Mood/Affect Skin: Normal Color, Warm/Dry Lymphatic: No Adenopathy Results Lab Laboratory Tests 01/12/23 15:35 Assessment/Plan Assessment/Plan 1 JOSEFA AMAYA MD Jan 12, 2023 19:00
[2023-01-12 19:38] VITALS: BP 152/108
[2023-01-12] MEDS ORDERED: RT-ALBUTEROL SULF 2.5 MG/3 ML PRE-MIX VIAL INH PRN (19:45)
[2023-01-12] MEDS: DOCUSATE SODIUM 100 MG CAPSULE PO SCH (21:07)
[2023-01-12] MEDS: SENNOSIDES 8.6 MG (SENOKOT) TAB PO SCH (21:07)
[2023-01-13 04:17] LABS: BASOPHILS # (AUTO) 0.1 10^3/uL (0.0-0.1); BASOPHILS % (AUTO) 1 % (0-10); EOSINOPHILS # (AUTO) 0.5 10^3/uL (0.0-0.3); EOSINOPHILS % (AUTO) 4 % (0-10); HEMATOCRIT 42 % (35-52); HEMOGLOBIN 13.5 g/dL (11.5-16.0); LYMPHOCYTES % (AUTO) 33 % (12-44); MEAN CORPUSCULAR HEMOGLOBIN 28 pg (25-34); MEAN CORPUSCULAR HGB CONC 33 g/dL (32-36); MEAN CORPUSCULAR VOLUME 87 fL (80-99); MEAN PLATELET VOLUME 10.1 fL (9.0-12.2); MONOCYTES # (AUTO) 0.8 10^3/uL (0.0-1.0); MONOCYTES % (AUTO) 7 % (0-12); NEUTROPHILS # (AUTO) 6.6 10^3/uL (1.8-7.8); NEUTROPHILS % (AUTO) 55 % (42-75); PLATELET COUNT 275 10^3/uL (130-400)
[2023-01-13 04:24] LABS: ALBUMIN 3.8 GM/DL (3.2-4.5); POTASSIUM 3.5 MMOL/L (3.6-5.0)
[2023-01-13 04:25] LABS: CALCIUM 8.6 MG/DL (8.5-10.1)
[2023-01-13 04:27] LABS: TOTAL PROTEIN 6.6 GM/DL (6.4-8.2)
[2023-01-13 04:30] LABS: CREATININE SERUM 0.76 MG/DL (0.60-1.30)
[2023-01-13 04:33] LABS: MAGNESIUM 1.9 MG/DL (1.6-2.4)
[2023-01-13] MEDS ORDERED: POTASSIUM CL 10MEQ/50ML IVPB 200 ML IV ONE (04:52)
[2023-01-13] MEDS: POTASSIUM CL 10MEQ/50ML IVPB 50 ML IV SCH ×4 (05:00→08:02)
[2023-01-13] MEDS ORDERED: POTASSIUM CHLORIDE 20 MEQ TABLET PO SCH (06:00)
[2023-01-13] MEDS ORDERED: MAGNESIUM 1 GM/100 ML IVPB 100 ML IV SCH (06:00)
[2023-01-13] MEDS ORDERED: POTASSIUM CL 10MEQ/50ML IVPB 50 ML IV SCH (06:00)
[2023-01-13] MEDS: DOCUSATE SODIUM 100 MG CAPSULE PO SCH ×2 (07:31→19:15)
[2023-01-13] MEDS: SENNOSIDES 8.6 MG (SENOKOT) TAB PO SCH ×2 (07:31→19:15)
[2023-01-13] MEDS: NS IV 1000 ML 1,000 ML IV SCH ×2 (08:03→10:34)
--- NOTE | 2023-01-13 08:11 | Diagnostic Imaging Report ---
EXAMINATION: Chest radiograph, portable AP view. DATE: 01/13/2023 6:29 AM INDICATION: 52-year-old female, shortness of breath. COMPARISON: CT chest December 15, 2019. FINDINGS: Heart size and mediastinal contours are unremarkable. There is no identified pneumothorax. There is no large pleural effusion. There is no identified focal airspace consolidation. IMPRESSION: 1. No identified acute cardiopulmonary abnormality. Dictated by: Dictated on workstation # [id number]
--- NOTE | 2023-01-13 08:45 | Progress Note - Cardiology ---
Cardiology SOAP Progress Note Subjective: Sitting up in bed States she feels good this morning and wishes to go home No further c/o near syncope No c/o CP, SOB or palpitations Objective: I&O/Vital Signs 01/12/23 01/12/23 01/12/23 01/12/23 22:00 23:00 23:30 23:59 Pulse 71 64 61 Resp 22 22 11 B/P (MAP) 130/76 (95) 143/89 (108) 120/73 (100) Pulse Ox 95 95 95 97 O2 Delivery Room Air Room Air Room Air Room Air 01/13/23 01/13/23 01/13/23 01/13/23 00:00 01:00 01:00 02:00 Pulse 61 61 61 61 Resp 11 21 17 B/P (MAP) 131/77 (100) 127/69 (90) 106/68 (83) Pulse Ox 94 97 95 O2 Delivery Room Air Room Air Room Air 01/13/23 01/13/23 01/13/23 01/13/23 03:00 04:00 04:00 05:00 Pulse 61 60 55 Resp 16 20 B/P (MAP) 104/68 (76) 130/88 (102) 127/81 (96) Pulse Ox 94 97 95 97 O2 Delivery Room Air Room Air Room Air Room Air 01/13/23 01/13/23 01/13/23 01/13/23 06:00 07:00 07:06 07:55 Temp 36.7 Pulse 61 59 62 Resp 15 19 B/P (MAP) 138/97 (111) 141/89 (106) Pulse Ox 97 97 O2 Delivery Room Air Room Air Room Air 01/13/23 01/13/23 01/13/23 08:00 08:00 09:00 Pulse 65 64 Resp 26 21 B/P (MAP) 135/108 (117) 128/85 (99) Pulse Ox 98 98 95 O2 Delivery Room Air Room Air Room Air 01/13/23 00:00 Intake Total 1250 ml Balance 1250 ml Weight (Pounds): 173 Weight (Calculated Kilograms): 78.343372 Constitutional: AAO x 3, well-developed, well-nourished Respiratory: No accessory muscle use, No respiratory distress; chest expansion is symmetric, chest is bilaterally symmetric, lungs clear to auscultation Cardiovascular: regular rate-rhythm; No JVD; S1 and S2, systolic murmur Gastrointestional: No tender; soft, round Extremities: no lower extremity edema bilateral Neurologic/Psychiatric: other (moves all extremities) Skin: No rash on exposed areas, No ulcerations on exposed areas Results/Procedures: Labs Laboratory Tests 01/12/23 15:35: White Blood Count 12.5H, Red Blood Count 5.21H, Hemoglobin 14.9, Hematocrit 45, Mean Corpuscular Volume 87, Mean Corpuscular Hemoglobin 29, Mean Corpuscular Hemoglobin Concent 33, Red Cell Distribution Width 13.4, Platelet Count 331, Mean Platelet Volume 9.5, Immature Granulocyte % (Auto) 0, Neutrophils (%) (Auto) 66, Lymphocytes (%) (Auto) 24, Monocytes (%) (Auto) 6, Eosinophils (%) (Auto) 3, Basophils (%) (Auto) 0, Neutrophils # (Auto) 8.3H, Lymphocytes # (Auto) 3.0, Monocytes # (Auto) 0.7, Eosinophils # (Auto) 0.4H, Basophils # (Auto) 0.0, Immature Granulocyte # (Auto) 0.0, Prothrombin Time 13.0, INR Comment 1.0, Activated Partial Thromboplast Time 38H, Sodium Level 141, Potassium Level 3.7, Chloride Level 108H, Carbon Dioxide Level 22, Anion Gap 11, Blood Urea Nitrogen 18, Creatinine 0.83, Estimat Glomerular Filtration Rate 84, BUN/Creatinine Ratio 22, Glucose Level 88, Calcium Level 9.8, Corrected Calcium 9.5, Magnesium Level 2.1, Total Bilirubin 0.7, Aspartate Amino Transf (AST/SGOT) 17, Alanine Aminotransferase (ALT/SGPT) 18, Alkaline Phosphatase 68, Troponin I < 0.028, Total Protein 7.7, Albumin 4.4, Thyroid Stimulating Hormone (TSH) 1.17 01/13/23 03:45: White Blood Count 12.0H, Red Blood Count 4.77, Hemoglobin 13.5, Hematocrit 42, Mean Corpuscular Volume 87, Mean Corpuscular Hemoglobin 28, Mean Corpuscular Hemoglobin Concent 33, Red Cell Distribution Width 13.2, Platelet Count 275, Mean Platelet Volume 10.1, Immature Granulocyte % (Auto) 0, Neutrophils (%) (Auto) 55, Lymphocytes (%) (Auto) 33, Monocytes (%) (Auto) 7, Eosinophils (%) (Auto) 4, Basophils (%) (Auto) 1, Neutrophils # (Auto) 6.6, Lymphocytes # (Auto) 4.0, Monocytes # (Auto) 0.8, Eosinophils # (Auto) 0.5H, Basophils # (Auto) 0.1, Immature Granulocyte # (Auto) 0.0, Sodium Level 141, Potassium Level 3.5L, Chloride Level 111H, Carbon Dioxide Level 20L, Anion Gap 10, Blood Urea Nitrogen 15, Creatinine 0.76, Estimat Glomerular Filtration Rate 94, BUN/Creatinine Ratio 20, Glucose Level 88, Calcium Level 8.6, Corrected Calcium 8.8, Magnesium Level 1.9, Total Bilirubin 1.0, Aspartate Amino Transf (AST/SGOT) 14, Alanine Aminotransferase (ALT/SGPT) 15, Alkaline Phosphatase 54, Total Protein 6.6, Albumin 3.8, Phosphorus Level 3.0, Triglycerides Level 139, Cholesterol Level 168, LDL Cholesterol Direct 124, VLDL Cholesterol 28, HDL Cholesterol 38L Procedures NAME: KAPIL STROUD [facility] REC#: [id number] PT STATUS: ADM [place] : 1970 PHYSICIAN: EBONI SAMPSON DO ADMIT DATE: 01/12/23/ICU Signed Date of Exam:01/13/23 CHEST 1 VIEW, AP/PA ONLY EXAMINATION: Chest radiograph, portable AP view. DATE: 01/13/2023 6:29 AM INDICATION: 52-year-old female, shortness of breath. COMPARISON: CT chest December 15, 2019. FINDINGS: Heart size and mediastinal contours are unremarkable. There is no identified pneumothorax. There is no large pleural effusion. There is no identified focal airspace consolidation. IMPRESSION: 1. No identified acute cardiopulmonary abnormality. Dictated by: Dictated on workstation # [id number] Dict: 01/13/2308 Trans: 01/13/23808 [id number] Interpreted by: FROILAN CASTELLANOS MD Electronically signed by: FROILAN CASTELLANOS MD 01/13/2309 A/P: Assessment: Sinus node dysfunction which is possibly being exacerbated by Ropinirole (new medication) - episode of bradycardia and escape junctional rhythm with a heart rate in the upper 30s seen on tele strips of 8-15-23 - has had no further episodes of bradycardia - maintaining SR HR 60's Palpitations. - 24 hr Holter of 01/19/20 shows sinus rhythm with sinus arrhythmia and isolated and coupled PACs - TSH normal on 01-12-23 Nonspecific chest discomfort (currently not reporting any) - MPI of 01/05/2020 shows no ischemia or infarction, LVEF 71% - Currently not reporting any symptoms - Echo of 01/04/20 shows LVEF 60-65%, marylu 2 diastolic dyfunction, PASP 20-25 mmHg - Echocardiogram of 06-16-2022 at [facility] by Dr. Thrasher showed LVEF 65-70% - MPI at [facility] in [place], [place] by Dr. Briscoe showed a small nonreversible defect involving the septal wall, with an adjacent sm to med sized reversible defect in the ant and apical iglesias. A sm to mod sized nonreversible defect involving the inferoseptal and inferior iglesias. - MPI at [facility] in [place], [place] (Dr Thrasher 06/29/22): Left dominant system without any angiographic abn of stenosis of the coronaries, LVEF 55% Aortic enlargement - Mild ascending aortic enlargement (alfredo 4.1 cm) on CT angio of 12/18/19 - CINDI at [facility] [place]/29/22: LVEF 60-65%, no significant valvular disase, mildly dilated ascending aorta (4.1 cm diameter) Obesity - with BMI approx 33 Pulmonary - H/o asthma - COPD Hyperlipidemia - statin - followed by PCP Borderline abnormal ECG: - NSR with incomplete RBBB and LAFB on ECG of 12/28/19, unchanged on 04/30/22 GERD - managed by PCP Chronic mild leucocytosis - She [facility], and reports that nothing significant was found Denies sleep apnea. States home test in 2019 was negative Plan: Near syncope with bradycardia on tele yesterday - received IVF and has had no further bradycardia or symptoms (has been up ambulating in the room) - she herself does not wish to have a pacemaker implanted and would like to monitor - recent new medication started at home is Ropinerole for RLS (this could possibly exacerbate her baseline sinus node dysfunction) - keep one more and continue to observe Hypokalemia this morning - replace Consult from Dr. Baugh reviewed Discussed plan of care with GEMINI Yan Jan 13, 2023 08:45
--- NOTE | 2023-01-13 12:40 | Progress Note - Cardiology ---
Cardiology SOAP Progress Note Subjective: No cp or palp or syncope No shortness of breath at rest No n/v/d Gen weakness, better No focal weakness Objective: I&O/Vital Signs 01/13/23 01/13/23 01/13/23 01/13/23 01:00 01:00 02:00 03:00 Pulse 61 61 61 61 Resp 21 17 16 B/P (MAP) 127/69 (90) 106/68 (83) 104/68 (76) Pulse Ox 97 95 94 O2 Delivery Room Air Room Air Room Air 01/13/23 01/13/23 01/13/23 01/13/23 04:00 04:00 05:00 06:00 Pulse 60 55 61 Resp 20 15 B/P (MAP) 130/88 (102) 127/81 (96) 138/97 (111) Pulse Ox 97 95 97 97 O2 Delivery Room Air Room Air Room Air Room Air 01/13/23 01/13/23 01/13/23 01/13/23 07:00 07:06 07:55 08:00 Temp 36.7 Pulse 59 62 65 Resp 19 26 B/P (MAP) 141/89 (106) 135/108 (117) Pulse Ox 97 98 O2 Delivery Room Air Room Air Room Air 01/13/23 01/13/23 01/13/23 08:00 09:00 11:52 Temp 36.1 Pulse 64 65 Resp 21 11 B/P (MAP) 128/85 (99) 138/96 (110) Pulse Ox 98 95 95 O2 Delivery Room Air Room Air Room Air 01/13/23 00:00 Intake Total 1250 ml Balance 1250 ml Weight (Pounds): 173 Weight (Calculated Kilograms): 78.561398 Constitutional: AAO x 3, well-developed, well-nourished Respiratory: No accessory muscle use, No respiratory distress; chest expansion is symmetric, chest is bilaterally symmetric, lungs clear to auscultation Cardiovascular: regular rate-rhythm; No JVD; S1 and S2, systolic murmur Gastrointestional: No tender; soft, round Extremities: no lower extremity edema bilateral Neurologic/Psychiatric: other (moves all extremities) Skin: No rash on exposed areas, No ulcerations on exposed areas Results/Procedures: Labs Laboratory Tests 01/12/23 15:35: White Blood Count 12.5H, Red Blood Count 5.21H, Hemoglobin 14.9, Hematocrit 45, Mean Corpuscular Volume 87, Mean Corpuscular Hemoglobin 29, Mean Corpuscular Hemoglobin Concent 33, Red Cell Distribution Width 13.4, Platelet Count 331, Mean Platelet Volume 9.5, Immature Granulocyte % (Auto) 0, Neutrophils (%) (Auto) 66, Lymphocytes (%) (Auto) 24, Monocytes (%) (Auto) 6, Eosinophils (%) (Auto) 3, Basophils (%) (Auto) 0, Neutrophils # (Auto) 8.3H, Lymphocytes # (Auto) 3.0, Monocytes # (Auto) 0.7, Eosinophils # (Auto) 0.4H, Basophils # (Auto) 0.0, Immature Granulocyte # (Auto) 0.0, Prothrombin Time 13.0, INR Comment 1.0, Activated Partial Thromboplast Time 38H, Sodium Level 141, Potassium Level 3.7, Chloride Level 108H, Carbon Dioxide Level 22, Anion Gap 11, Blood Urea Nitrogen 18, Creatinine 0.83, Estimat Glomerular Filtration Rate 84, BUN/Creatinine Ratio 22, Glucose Level 88, Calcium Level 9.8, Corrected Calcium 9.5, Magnesium Level 2.1, Total Bilirubin 0.7, Aspartate Amino Transf (AST/SGOT) 17, Alanine Aminotransferase (ALT/SGPT) 18, Alkaline Phosphatase 68, Troponin I < 0.028, Total Protein 7.7, Albumin 4.4, Thyroid Stimulating Hormone (TSH) 1.17 01/13/23 03:45: White Blood Count 12.0H, Red Blood Count 4.77, Hemoglobin 13.5, Hematocrit 42, Mean Corpuscular Volume 87, Mean Corpuscular Hemoglobin 28, Mean Corpuscular Hemoglobin Concent 33, Red Cell Distribution Width 13.2, Platelet Count 275, Mean Platelet Volume 10.1, Immature Granulocyte % (Auto) 0, Neutrophils (%) (Auto) 55, Lymphocytes (%) (Auto) 33, Monocytes (%) (Auto) 7, Eosinophils (%) (Auto) 4, Basophils (%) (Auto) 1, Neutrophils # (Auto) 6.6, Lymphocytes # (Auto) 4.0, Monocytes # (Auto) 0.8, Eosinophils # (Auto) 0.5H, Basophils # (Auto) 0.1, Immature Granulocyte # (Auto) 0.0, Sodium Level 141, Potassium Level 3.5L, Chloride Level 111H, Carbon Dioxide Level 20L, Anion Gap 10, Blood Urea Nitrogen 15, Creatinine 0.76, Estimat Glomerular Filtration Rate 94, BUN/Creatinine Ratio 20, Glucose Level 88, Calcium Level 8.6, Corrected Calcium 8.8, Magnesium Level 1.9, Total Bilirubin 1.0, Aspartate Amino Transf (AST/SGOT) 14, Alanine Aminotransferase (ALT/SGPT) 15, Alkaline Phosphatase 54, Total Protein 6.6, Albumin 3.8, Phosphorus Level 3.0, Triglycerides Level 139, Cholesterol Level 168, LDL Cholesterol Direct 124, VLDL Cholesterol 28, HDL Cholesterol 38L Laboratory Tests 01/12/23 15:35 01/13/23 03:45 A/P: Assessment: Sinus node dysfunction which is possibly being exacerbated by Ropinirole (new medication) - episode of bradycardia and escape junctional rhythm with a heart rate in the upper 30s seen on tele strips of 01-12-23 - has had no further episodes of bradycardia - maintaining SR HR 60's Palpitations. - 24 hr Holter of 01/19/20 shows sinus rhythm with sinus arrhythmia and isolated and coupled PACs - TSH normal on 01-12-23 Nonspecific chest discomfort (currently not reporting any) - MPI of 01/05/2020 shows no ischemia or infarction, LVEF 71% - Currently not reporting any symptoms - Echo of 01/04/20 shows LVEF 60-65%, marylu 2 diastolic dyfunction, PASP 20-25 mmHg - Echocardiogram of 06-16-2022 at [facility] by Dr. Thrasher showed LVEF 65-70% - MPI at [facility] in [place], [place] by Dr. Briscoe showed a small nonreversible defect involving the septal wall, with an adjacent sm to med sized reversible defect in the ant and apical iglesias. A sm to mod sized nonreversible defect involving the inferoseptal and inferior iglesias. - MPI at [facility] in [place], [place] (Dr Thrasher 06/29/22): Left dominant system without any angiographic abn of stenosis of the coronaries, LVEF 55% Aortic enlargement - Mild ascending aortic enlargement (alfredo 4.1 cm) on CT angio of 12/18/19 - CINDI at [facility] [place] on 06/29/22: LVEF 60-65%, no significant valvular disase, mildly dilated ascending aorta (4.1 cm diameter) Obesity - with BMI approx 33 Pulmonary - H/o asthma - COPD Hyperlipidemia - statin - followed by PCP Borderline abnormal ECG: - NSR with incomplete RBBB and LAFB on ECG of 12/28/19, unchanged on 04/30/22 GERD - managed by PCP Chronic mild leucocytosis - She [facility], and reports that nothing significant was found Denies sleep apnea. States home test in 2019 was negative Plan: Near-syncope with bradycardia on tele yesterday - received IVF and has had no further bradycardia or symptoms (has been up ambulating in the room) - she herself does not wish to have a pacemaker implanted and would like to monitor - recent new medication started at home is Ropinerole for RLS (this could possibly exacerbate her baseline sinus node dysfunction) - keep one more and con tinue to observe Hypokalemia this morning - replace Consult from Dr. Baugh reviewed I discussed her CV issues and plan of care in detail with CHRIS Lizarraga MD FACP FACC CCDS Jan 13, 2023 12:40
--- NOTE | 2023-01-13 13:42 | History & Physical ---
[facility] 01/13/23 1342: History of Present Illness History of Present Illness Reason for visit/HPI CC: bradycardia HPI :52 y/o female with a history of hypothyroidism, COPD, asthma, hyperlipidemia, GERD, IBS and mild scoliosis came into the ER with complaints of dizziness. She was working out and a little while after she finished she felt lightheaded and dizzy, but she did not lose consciousness. Her at home monitor read her heart rate in the 40's and her pulse ox also said she was low so she drove herself to the ED. While in the ED she had multiple episode of bradycardia going as low as 38. Her cardiology consult noted sinus pauses with junctional escape rhythm and she was admitted to the ICU for monitoring. She said she felt fine now and had no recurrence of symptoms overnight or this morning. She did not report any SOB, chest pain, or any focal weakness when I visited her and all her vitals were stable. She has an appetite and reports no other pain or discomfort. CTA on 12/18/19 noted mild ascending aortic enlargement, and ECG on 12/28/19 showed normal sinus rythm with incomplete RBBB and LAFB , unchanged on 04/30/22. Date of Admission Jan 12, 2023 at 17:51 Date Seen by a Provider: Jan 13, 2023 Time Seen by a Provider: 11:00 I consulted on this patient on 01/13/23 13:34 Attending Physician Yoanna Castillo MD Admitting Physician Admitting Physician: Jessica Sampson DO Attending Physician: Jessica Sampson DO Consult Allergies and Home Medications Allergies Coded Allergies: Sulfa (Sulfonamide Antibiotics) (Verified Allergy, Unknown, 11/14/08) diltiazem (Verified Allergy, Unknown, TAKES VERAPAMIL AT HOME, 11/14/08) Patient Home Medication List Home Medication List Reviewed: Yes Albuterol Sulfate (Ventolin Hfa) 1 Puff Puff, 2 PUFF IH PRN, (Reported) Entered as Reported by: SUHAIL STEVENSON on 08/15/201416 Budesonide/Formoterol Fumarate (Symbicort 80-4.5 Mcg Inhaler) 10.2 Gm Hfa.aer.ad, 2 PUFF IH DAILY, (Reported) Entered as Reported by: SUHAIL STEVENSON on 08/15/201416 Cetirizine HCl (Zyrtec) 10 Mg Tablet, 10 MG PO DAILY, (Reported) Entered as Reported by: SUHAIL STEVENSON on 08/15/201416 Famotidine (Acid Recreational Sports Director (FAMOTIDINE)) 20 Mg Tablet, 20 MG PO HS, (Reported) Entered as Reported by: SUHAIL STEVENSON on 08/15/201416 Fluticasone Propionate (Flonase Allergy Relief) 9.9 Ml [place].susp, 2 SPRAY NS DAILY, (Reported) Entered as Reported by: SUHAIL STEVENSON on 08/15/201416 Guaifenesin (Mucinex) 600 Mg Tab.er.12h, 600 MG PO DAILY, (Reported) Entered as Reported by: SUHAIL STEVENSON on 08/15/201416 Levothyroxine Sodium (Levothyroxine) 25 Mcg Capsule, 25 MCG PO DAILY, (Reported) Entered as Reported by: SUHAIL STEVENSON on 08/15/201416 Montelukast Sodium (Singulair) 10 Mg Tablet, 10 MG PO HS, (Reported) Entered as Reported by: SUHAIL STEVENSON on 08/15/201416 Mv-Mn/Iron/FA/Herbal Cmplx#190 (Vitamin D3 Complete Caplet) 1 Each Tablet, 1 EACH PO DAILY, (Reported) Entered as Reported by: SUHAIL STEVENSON on 08/15/201416 Omeprazole (Omeprazole) 20 Mg Capsule.dr, 20 MG PO DAILY, (Reported) Entered as Reported by: SUHAIL STEVENSON on 08/15/201416 Pediatric Multivit Comb #25/FA (Flintstones Multivit Chew Tab) 300 Mcg Tab.chew, 300 MCG PO DAILY, (Reported) Entered as Reported by: SUHAIL STEVENSON on 08/15/201416 Pramipexole Di-HCl (Pramipexole Dihydrochloride) 0.5 Mg Tablet, 0.5 MG PO DAILY, (Reported) Entered as Reported by: SUHAIL STEVENSON on 08/15/201416 Simvastatin (Simvastatin) 20 Mg Tablet, 20 MG PO DAILY, (Reported) Entered as Reported by: SUHAIL STEVENSON on 08/15/201416 Past Ipzifsn-Hjzfqp-Xodoav Hx Patient Social History Marrital Status: Employed/Student: employed Tobacco Use?: No Use of E-Cig and/or Vaping dev: No Substance use?: No Alcohol Use?: No Alcohol type: Wine, Other Alcohol Frequency: Rarely Additional Alcohol Comments: 3x per year. Pt feels they are or have been: No Immunizations Up To Date First/Initial COVID19 Vaccinat: 07/2020 Second COVID19 Vaccination Matteo: 07/2020 Current Status status: No status: No Advance Directives: No Communicates: Verbally Primary Language: Faroese Preferred Spoken Language: Faroese Is interpretation needed?: No Sensory deficits: Vision impairment Implanted or Applied Medical D: None Past Medical History Surgeries: Hysterectomy Asthma, COPD Heart Murmur Sexually Transmitted Disease: No Hypothyroidsim Anxiety, Depression Blood Disorders: No Family Medical History Colon cancer Cancer (mom had breast cancer), COPD (mom has COPD- did smoke tobacco ), Diabetes (one of her brothers), Stroke (mom had mutiple strokes ) One of her brothers passed at 30 from an AK- also had polycythemia vera Review of Systems Constitutional: No chills, No diaphoresis; dizziness (did not have another episode of dizziness while in ICU- see HPI); No fever, No malaise; weakness (mild general weakness that resolved) EENTM: no symptoms reported; No hearing loss, No ear pain, No blurred vision, No double vision, No eye pain, No tearing, No vision loss, No mouth pain, No mouth swelling Cardiovascular: see HPI Gastrointestinal: no symptoms reported; No abdominal pain, No constipation, No dysphagia, No hematemesis; heartburn (Has hx of GERD- takes PPI) Genitourinary: no symptoms reported Psychiatric/Neurological: No Symptoms Reported; Denies Anxiety, Denies Headache, Denies Numbness, Denies Paresthesia, Denies Seizure, Denies Tingling Physical Exam Vital Signs Vital Signs - First Documented 01/12/23 01/12/23 15:15 19:38 Temp 37.1 Pulse 53 Resp 15 B/P (MAP) 121/92 (102) Pulse Ox 97 O2 Delivery Room Air FiO2 21 Capillary Refill : Less Than 3 Seconds Height, Weight, BMI Height: 4'12.00" Weight: 173lbs. oz. 78.509229kh; 32.98 BMI Method: General Appearance: No Apparent Distress, Obese Neck: Full Range of Motion, Normal Inspection, Non Tender, Supple; No JVD, No Lymphadenopathy (L), No Lymphadenopathy (R) Cardiovascular: No Edema, Normal Peripheral Pulses, Bradycardia Gastrointestinal: Normal Bowel Sounds, No Organomegaly, No Pulsatile Mass, Non Tender, Soft Extremity: Normal Capillary Refill, Normal Inspection, Normal Range of Motion, Non Tender, No Calf Tenderness, No Pedal Edema; No Calf Tenderness Neurologic/Psychiatric: Alert, Oriented x3, No Motor/Sensory Deficits, Normal Mood/Affect, services account manager II-XII Norm as Tested; No Motor Weakness, No Sensory Deficit Assessment/Plan Assessment and Plan Assessment: symptomatic bradycardia COPD hypothyroidism asthma obese mild aortic enlargement Plan; conservative management Move to [facility] surg 4th floor on telemetry cardiology consult ECG follow up Admission Diagnosis Admission Status: Observation Reason for Inpatient Admission: symptomatic bradycardia with sinus pause and junctional escape JESSICA Ross DO 01/13/23 2007: Allergies and Home Medications Allergies Coded Allergies: Sulfa (Sulfonamide Antibiotics) (Verified Allergy, Unknown, 11/14/08) diltiazem (Verified Allergy, Unknown, TAKES VERAPAMIL AT HOME, 11/14/08) Patient Home Medication List Albuterol Sulfate (Ventolin Hfa) 1 Puff Puff, 2 PUFF IH PRN, (Reported) Entered as Reported by: SUHAIL STEVENSON on 08/15/201416 Budesonide/Formoterol Fumarate (Symbicort 80-4.5 Mcg Inhaler) 10.2 Gm Hfa.aer.ad, 2 PUFF IH DAILY, (Reported) Entered as Reported by: SUHAIL STEVENSON on 08/15/201416 Cetirizine HCl (Zyrtec) 10 Mg Tablet, 10 MG PO DAILY, (Reported) Entered as Reported by: SUHAIL STEVENSON on 08/15/201416 Famotidine (Acid Recreational Sports Director (FAMOTIDINE)) 20 Mg Tablet, 20 MG PO HS, (Reported) Entered as Reported by: SUHAIL STEVENSON on 08/15/201416 Fluticasone Propionate (Flonase Allergy Relief) 9.9 Ml [place].susp, 2 SPRAY NS DAILY, (Reported) Entered as Reported by: SUHAIL STEVENSON on 08/15/201416 Guaifenesin (Mucinex) 600 Mg Tab.er.12h, 600 MG PO DAILY, (Reported) Entered as Reported by: SUHAIL STEVENSON on 08/15/201416 Levothyroxine Sodium (Levothyroxine) 25 Mcg Capsule, 25 MCG PO DAILY, (Reported) Entered as Reported by: SUHAIL STEVENSON on 08/15/201416 Montelukast Sodium (Singulair) 10 Mg Tablet, 10 MG PO HS, (Reported) Entered as Reported by: SUHAIL STEVENSON on 08/15/201416 Mv-Mn/Iron/FA/Herbal Cmplx#190 (Vitamin D3 Complete Caplet) 1 Each Tablet, 1 EACH PO DAILY, (Reported) Entered as Reported by: SUHAIL STEVENSON on 08/15/201416 Omeprazole (Omeprazole) 20 Mg Capsule.dr, 20 MG PO DAILY, (Reported) Entered as Reported by: SUHAIL STEVENSON on 08/15/201416 Pediatric Multivit Comb #25/FA (Flintstones Multivit Chew Tab) 300 Mcg Tab.chew, 300 MCG PO DAILY, (Reported) Entered as Reported by: SUHAIL STEVENSON on 08/15/201416 Pramipexole Di-HCl (Pramipexole Dihydrochloride) 0.5 Mg Tablet, 0.5 MG PO DAILY, (Reported) Entered as Reported by: SUHAIL STEVENSON on 08/15/201416 Simvastatin (Simvastatin) 20 Mg Tablet, 20 MG PO DAILY, (Reported) Entered as Reported by: SUHAIL STEVENSON on 08/15/201416 Past Ointpyk-Zjryrn-Ycuauf Hx Family Medical History Colon cancer Assessment/Plan Assessment and Plan Monitor baldemar Admission Diagnosis Admission Status: Observation Supervisory-Addendum Brief Verification & Attestation Participated in pt care: history, MDM, physical Personally performed: exam, history, MDM, supervision of care Care discussed with: Medical Student Procedures: n/a Results interpretation: Verified all documentation Verification and Attestation of Medical Student E/M Service A medical student performed and documented this service in my presence. I reviewed and verified all information documented by the medical student and made modifications to such information, when appropriate. I personally performed the physical exam and medical decision making. Jessica Sampson Jan 13, 2023,20:06 JONES Jan 13, 2023 13:42 JESSICA SAMPSON DO Jan 13, 2023 20:07
[2023-01-13 15:52] VITALS: BP 118/80
[2023-01-13] MEDS: ENOXAPARIN 40 MG/0.4 ML SYRINGE SC SCH (18:04)
[2023-01-13 19:19] VITALS: BP 117/70
[2023-01-13 23:10] VITALS: BP 132/69
[2023-01-14 04:13] VITALS: BP 117/64
[2023-01-14 05:31] LABS: BASOPHILS # (AUTO) 0.1 10^3/uL (0.0-0.1); BASOPHILS % (AUTO) 1 % (0-10); EOSINOPHILS # (AUTO) 0.6 10^3/uL (0.0-0.3); EOSINOPHILS % (AUTO) 5 % (0-10); HEMATOCRIT 44 % (35-52); HEMOGLOBIN 14.7 g/dL (11.5-16.0); LYMPHOCYTES # (AUTO) 3.5 10^3/uL (1.0-4.0); LYMPHOCYTES % (AUTO) 31 % (12-44); MEAN CORPUSCULAR HEMOGLOBIN 29 pg (25-34); MEAN CORPUSCULAR HGB CONC 34 g/dL (32-36); MEAN CORPUSCULAR VOLUME 87 fL (80-99); MEAN PLATELET VOLUME 9.7 fL (9.0-12.2); MONOCYTES # (AUTO) 0.8 10^3/uL (0.0-1.0); MONOCYTES % (AUTO) 7 % (0-12); NEUTROPHILS # (AUTO) 6.3 10^3/uL (1.8-7.8); NEUTROPHILS % (AUTO) 56 % (42-75); PLATELET COUNT 299 10^3/uL (130-400); WHITE BLOOD COUNT 11.2 10^3/uL (4.3-11.0)
[2023-01-14 05:44] LABS: ALBUMIN 4.2 GM/DL (3.2-4.5); POTASSIUM 3.7 MMOL/L (3.6-5.0)
[2023-01-14 05:45] LABS: CALCIUM 9.3 MG/DL (8.5-10.1)
[2023-01-14 05:46] LABS: TOTAL PROTEIN 7.2 GM/DL (6.4-8.2)
[2023-01-14 05:48] LABS: BILIRUBIN,TOTAL 1.1 MG/DL (0.1-1.0)
[2023-01-14 05:50] LABS: CREATININE SERUM 0.81 MG/DL (0.60-1.30)
[2023-01-14 07:13] VITALS: BP 119/77
[2023-01-14] MEDS: SENNOSIDES 8.6 MG (SENOKOT) TAB PO SCH (08:53)
[2023-01-14] MEDS: DOCUSATE SODIUM 100 MG CAPSULE PO SCH (08:53)
[2023-01-14] MEDS ORDERED: LEVO25TA5 PO (10:10)
[2023-01-14] MEDS ORDERED: CHOL10007 PO (10:10)
[2023-01-14] MEDS ORDERED: ROPI0.253 PO (10:10)
[2023-01-14] MEDS ORDERED: CYAN100015 SL (10:10)
[2023-01-14] MEDS ORDERED: FLUT1BLS3 INH (10:10)
[2023-01-14] MEDS ORDERED: VIT1TAB.18 PO (10:10)
[2023-01-14 11:20] VITALS: BP 121/76
--- NOTE | 2023-01-14 11:33 | Discharge Summary ---
Diagnosis/Chief Complaint Date of Admission Jan 12, 2023 at 17:51 Date of Discharge Discharge Date: Jan 14, 2023 Discharge Diagnosis Assessment: symptomatic bradycardia COPD hypothyroidism asthma obese mild aortic enlargement Discharge Summary Discharge Physical Examination Allergies: Coded Allergies: Sulfa (Sulfonamide Antibiotics) (Verified Allergy, Unknown, 11/14/08) diltiazem (Verified Allergy, Unknown, TAKES VERAPAMIL AT HOME, 11/14/08) Vitals & I&Os Vital Signs Date Time Temp Pulse Resp B/P (MAP) Pulse Ox O2 Delivery O2 Flow Rate FiO2 01/14/23 12:20 36.9 57 18 121/76 96 Room Air 01/12/23 19:38 21 General Appearance: Alert, Oriented X3, Cooperative Respiratory: Clear to Auscultation Cardiovascular: Regular Rate Psych/Mental Status: Mental Status NL Hospital Course Was the Problem List Reviewed?: Yes Hospital course: 52 y/o female presented to the ED with symptomatic bradycardia after working out. She said she felt dizzy and lightheaded and her at home monitor read her rate in the 40's along with low pulse ox, but when she arrived she denied SOB, chest pain, or weakness. She has a history of COPD, asthma, hypothyroidism, GERD, IBS, and mild scoliosis. To not she does not have any smoking history. Her history also showed CTA on 12/18/19 noting mild ascending aortic enlargement, and ECG on 12/28/19 showed normal sinus rhythm with incomplete RBBB and LAFB , unchanged on 04/30/22. While in the ED she had multiple episodes of bradycardia and her cardiology consult noted sinus pauses with a junctional escape rhythm. Patient was moved to the ICU for monitoring but during her stay she did not report any recurrence of symptoms and felt no pain or discomfort. Vitals remained stable so she was moved to the [facility] floor for monitoring. Echo on 01/13/23 noted pulmonary artery pressure to be 30-35mmHg. No further symptoms occurred and patient was able to ambulate around the floor without any SOB, dizziness, N/V, or chest pain. Cardiology consult recommended patient should get a heart monitor before discharge on 01/14/23. JONES Labs (last 24 hrs) Laboratory Tests 01/12/23 15:35: White Blood Count 12.5H, Red Blood Count 5.21H, Hemoglobin 14.9, Hematocrit 45, Mean Corpuscular Volume 87, Mean Corpuscular Hemoglobin 29, Mean Corpuscular Hemoglobin Concent 33, Red Cell Distribution Width 13.4, Platelet Count 331, Mean Platelet Volume 9.5, Immature Granulocyte % (Auto) 0, Neutrophils (%) (Auto) 66, Lymphocytes (%) (Auto) 24, Monocytes (%) (Auto) 6, Eosinophils (%) (Auto) 3, Basophils (%) (Auto) 0, Neutrophils # (Auto) 8.3H, Lymphocytes # (Auto) 3.0, Monocytes # (Auto) 0.7, Eosinophils # (Auto) 0.4H, Basophils # (Auto) 0.0, Immature Granulocyte # (Auto) 0.0, Prothrombin Time 13.0, INR Comment 1.0, Activated Partial Thromboplast Time 38H, Sodium Level 141, Potassium Level 3.7, Chloride Level 108H, Carbon Dioxide Level 22, Anion Gap 11, Blood Urea Nitrogen 18, Creatinine 0.83, Estimat Glomerular Filtration Rate 84, BUN/Creatinine Ratio 22, Glucose Level 88, Calcium Level 9.8, Corrected Calcium 9.5, Magnesium Level 2.1, Total Bilirubin 0.7, Aspartate Amino Transf (AST/SGOT) 17, Alanine Aminotransferase (ALT/SGPT) 18, Alkaline Phosphatase 68, Troponin I < 0.028, Total Protein 7.7, Albumin 4.4, Thyroid Stimulating Hormone (TSH) 1.17 01/13/23 03:45: White Blood Count 12.0H, Red Blood Count 4.77, Hemoglobin 13.5, Hematocrit 42, Mean Corpuscular Volume 87, Mean Corpuscular Hemoglobin 28, Mean Corpuscular Hemoglobin Concent 33, Red Cell Distribution Width 13.2, Platelet Count 275, Mean Platelet Volume 10.1, Immature Granulocyte % (Auto) 0, Neutrophils (%) (Auto) 55, Lymphocytes (%) (Auto) 33, Monocytes (%) (Auto) 7, Eosinophils (%) (Auto) 4, Basophils (%) (Auto) 1, Neutrophils # (Auto) 6.6, Lymphocytes # (Auto) 4.0, Monocytes # (Auto) 0.8, Eosinophils # (Auto) 0.5H, Basophils # (Auto) 0.1, Immature Granulocyte # (Auto) 0.0, Sodium Level 141, Potassium Level 3.5L, Chloride Level 111H, Carbon Dioxide Level 20L, Anion Gap 10, Blood Urea Nitrogen 15, Creatinine 0.76, Estimat Glomerular Filtration Rate 94, BUN/Creatinine Ratio 20, Glucose Level 88, Calcium Level 8.6, Corrected Calcium 8.8, Magnesium Level 1.9, Total Bilirubin 1.0, Aspartate Amino Transf (AST/SGOT) 14, Alanine Aminotransferase (ALT/SGPT) 15, Alkaline Phosphatase 54, Total Protein 6.6, Albumin 3.8, Phosphorus Level 3.0, Triglycerides Level 139, Cholesterol Level 168, LDL Cholesterol Direct 124, VLDL Cholesterol 28, HDL Cholesterol 38L 01/14/23 05:13: White Blood Count 11.2H, Red Blood Count 5.04, Hemoglobin 14.7, Hematocrit 44, Mean Corpuscular Volume 87, Mean Corpuscular Hemoglobin 29, Mean Corpuscular Hemoglobin Concent 34, Red Cell Distribution Width 13.2, Platelet Count 299, Mean Platelet Volume 9.7, Immature Granulocyte % (Auto) 0, Neutrophils (%) (A uto) 56, Lymphocytes (%) (Auto) 31, Monocytes (%) (Auto) 7, Eosinophils (%) (Auto) 5, Basophils (%) (Auto) 1, Neutrophils # (Auto) 6.3, Lymphocytes # (Auto) 3.5, Monocytes # (Auto) 0.8, Eosinophils # (Auto) 0.6H, Basophils # (Auto) 0.1, Immature Granulocyte # (Auto) 0.0, Sodium Level 140, Potassium Level 3.7, Chloride Level 109H, Carbon Dioxide Level 20L, Anion Gap 11, Blood Urea Nitrogen 12, Creatinine 0.81, Estimat Glomerular Filtration Rate 87, BUN/Creatinine Ratio 15, Glucose Level 86, Calcium Level 9.3, Corrected Calcium 9.1, Magnesium Level 2.0, Total Bilirubin 1.1H, Aspartate Amino Transf (AST/SGOT) 14, Alanine Aminotransferase (ALT/SGPT) 17, Alkaline Phosphatase 62, Total Protein 7.2, Albumin 4.2 Microbiology 01/12/23 MRSA Screen - Final, Complete MRSA not isolated Pending Labs Microbiology Date/Time Source Procedure Growth Status 01/12/23 18:06 Nasal MRSA Screen - Final MRSA not isolated Complete Laboratory Tests 01/12/23 15:35: White Blood Count 12.5, Red Blood Count 5.21, Hemoglobin 14.9, Hematocrit 45, Mean Corpuscular Volume 87, Mean Corpuscular Hemoglobin 29, Mean Corpuscular Hemoglobin Concent 33, Red Cell Distribution Width 13.4, Platelet Count 331, Mean Platelet Volume 9.5, Immature Granulocyte % (Auto) 0, Neutrophils (%) (Auto) 66, Lymphocytes (%) (Auto) 24, Monocytes (%) (Auto) 6, Eosinophils (%) (Auto) 3, Basophils (%) (Auto) 0, Neutrophils # (Auto) 8.3, Lymphocytes # (Auto) 3.0, Monocytes # (Auto) 0.7, Eosinophils # (Auto) 0.4, Basophils # (Auto) 0.0, Immature Granulocyte # (Auto) 0.0, Prothrombin Time 13.0, INR Comment 1.0, Activated Partial Thromboplast Time 38, Sodium Level 141, Potassium Level 3.7, Chloride Level 108, Carbon Dioxide Level 22, Anion Gap 11, Blood Urea Nitrogen 18, Creatinine 0.83, Estimat Glomerular Filtration Rate 84, BUN/Creatinine Ratio 22, Glucose Level 88, Calcium Level 9.8, Corrected Calcium 9.5, Magnesium Level 2.1, Total Bilirubin 0.7, Aspartate Amino Transf (AST/SGOT) 17, Alanine Aminotransferase (ALT/SGPT) 18, Alkaline Phosphatase 68, Troponin I < 0.028, Total Protein 7.7, Albumin 4.4, Thyroid Stimulating Hormone (TSH) 1.17 01/13/23 03:45: White Blood Count 12.0, Red Blood Count 4.77, Hemoglobin 13.5, Hematocrit 42, Mean Corpuscular Volume 87, Mean Corpuscular Hemoglobin 28, Mean Corpuscular Hemoglobin Concent 33, Red Cell Distribution Width 13.2, Platelet Count 275, Mean Platelet Volume 10.1, Immature Granulocyte % (Auto) 0, Neutrophils (%) (Auto) 55, Lymphocytes (%) (Auto) 33, Monocytes (%) (Auto) 7, Eosinophils (%) (Auto) 4, Basophils (%) (Auto) 1, Neutrophils # (Auto) 6.6, Lymphocytes # (Auto) 4.0, Monocytes # (Auto) 0.8, Eosinophils # (Auto) 0.5, Basophils # (Auto) 0.1, Immature Granulocyte # (Auto) 0.0, Sodium Level 141, Potassium Level 3.5, Chloride Level 111, Carbon Dioxide Level 20, Anion Gap 10, Blood Urea Nitrogen 15, Creatinine 0.76, Estimat Glomerular Filtration Rate 94, BUN/Creatinine Ratio 20, Glucose Level 88, Calcium Level 8.6, Corrected Calcium 8.8, Magnesium Level 1.9, Total Bilirubin 1.0, Aspartate Amino Transf (AST/SGOT) 14, Alanine Aminotransferase (ALT/SGPT) 15, Alkaline Phosphatase 54, Total Protein 6.6, Albumin 3.8, Phosphorus Level 3.0, Triglycerides Level 139, Cholesterol Level 168, LDL Cholesterol Direct 124, VLDL Cholesterol 28, HDL Cholesterol 38 01/14/23 05:13: White Blood Count 11.2, Red Blood Count 5.04, Hemoglobin 14.7, Hematocrit 44, Mean Corpuscular Volume 87, Mean Corpuscular Hemoglobin 29, Mean Corpuscular Hemoglobin Concent 34, Red Cell Distribution Width 13.2, Platelet Count 299, Mean Platelet Volume 9.7, Immature Granulocyte % (Auto) 0, Neutrophils (%) (A uto) 56, Lymphocytes (%) (Auto) 31, Monocytes (%) (Auto) 7, Eosinophils (%) (Auto) 5, Basophils (%) (Auto) 1, Neutrophils # (Auto) 6.3, Lymphocytes # (Auto) 3.5, Monocytes # (Auto) 0.8, Eosinophils # (Auto) 0.6, Basophils # (Auto) 0.1, Immature Granulocyte # (Auto) 0.0, Sodium Level 140, Potassium Level 3.7, Chloride Level 109, Carbon Dioxide Level 20, Anion Gap 11, Blood Urea Nitrogen 12, Creatinine 0.81, Estimat Glomerular Filtration Rate 87, BUN/Creatinine Ratio 15, Glucose Level 86, Calcium Level 9.3, Corrected Calcium 9.1, Magnesium Level 2.0, Total Bilirubin 1.1, Aspartate Amino Transf (AST/SGOT) 14, Alanine Aminotransferase (ALT/SGPT) 17, Alkaline Phosphatase 62, Total Protein 7.2, Albumin 4.2 Discharge Home Medications: Active Scripts Active Reported Elderberry Immune Health Gummy (Vit C/Zinc Citrate/Elderberry) 45 Mg-3.75 Mg-50 Mg Tab.chew 1 Each PO DAILY Vitamin B-12 (Cyanocobalamin (Vitamin B-12)) 1,000 Mcg Tab.subl 1,000 Mcg [facility] Vitamin D3 (Cholecalciferol (Vitamin D3)) 25 Mcg (1000 Unit) Capsule 25 Mcg PO DAILY Levothyroxine Sodium 25 Mcg Tablet 37.5 Mg PO DAILY TAKES 1 & (25MCG) TABS Trelegy Ellipta 100-62.5-25 (Fluticasone/Umeclidin/Vilanter) 100-62.5 Blst.w.dev 1 Puff INH DAILY Simvastatin 20 Mg Tablet 20 Mg PO DAILY Zyrtec (Cetirizine HCl) 10 Mg Tablet 10 Mg PO DAILY Flonase Allergy Relief (Fluticasone Propionate) 50 Mcg/Actuation [place].susp 1-2 [place] NSEACH DAILY Ventolin Hfa (Albuterol Sulfate) 90 Mcg Hfa.aer.ad 2 Puff IH Q6H PRN Mucinex (Guaifenesin) 600 Mg Tab.er.12h 600 Mg PO DAILY [place] Multivit Chew Tab (Pediatric Multivit Comb #25/FA) 300 Mcg Tab.chew 1 Ea PO DAILY Omeprazole 20 Mg Capsule.dr 20 Mg PO DAILY Instructions to patient/family Please see electronic discharge instructions given to patient. EBONI SAMPSON DO Jan 14, 2023 11:33
--- NOTE | 2023-01-14 12:01 | Progress Note - Cardiology ---
Cardiology SOAP Progress Note Subjective: No cp or palp or syncope No n/v/d No focal weakness Objective: I&O/Vital Signs 01/14/23 01/14/23 01/14/23 01/14/23 01:00 04:13 07:05 07:13 Temp 36.7 36.6 Pulse 71 55 62 61 Resp 18 18 B/P (MAP) 117/64 (81) 119/77 (91) Pulse Ox 97 95 O2 Delivery Room Air Room Air 01/14/23 01/14/23 08:00 11:20 Temp 36.9 Pulse 57 Resp 18 B/P (MAP) 121/76 (91) Pulse Ox 95 96 O2 Delivery Room Air Room Air 01/14/23 00:00 Intake Total 1877.5 ml Balance 1877.5 ml Weight (Pounds): 173 Weight (Calculated Kilograms): 78.440413 Constitutional: AAO x 3, well-developed, well-nourished Respiratory: No accessory muscle use, No respiratory distress; chest expansion is symmetric, chest is bilaterally symmetric, lungs clear to auscultation Cardiovascular: regular rate-rhythm; No JVD; S1 and S2, systolic murmur Gastrointestional: No tender; soft, round Extremities: no lower extremity edema bilateral Neurologic/Psychiatric: other (moves all extremities) Skin: No rash on exposed areas, No ulcerations on exposed areas Results/Procedures: Labs Laboratory Tests 01/14/23 05:13: White Blood Count 11.2H, Red Blood Count 5.04, Hemoglobin 14.7, Hematocrit 44, Mean Corpuscular Volume 87, Mean Corpuscular Hemoglobin 29, Mean Corpuscular Hemoglobin Concent 34, Red Cell Distribution Width 13.2, Platelet Count 299, Mean Platelet Volume 9.7, Immature Granulocyte % (Auto) 0, Neutrophils (%) (Auto) 56, Lymphocytes (%) (Auto) 31, Monocytes (%) (Auto) 7, Eosinophils (%) (Auto) 5, Basophils (%) (Auto) 1, Neutrophils # (Auto) 6.3, Lymphocytes # (Auto) 3.5, Monocytes # (Auto) 0.8, Eosinophils # (Auto) 0.6H, Basophils # (Auto) 0.1, Immature Granulocyte # (Auto) 0.0, Sodium Level 140, Potassium Level 3.7, Chloride Level 109H, Carbon Dioxide Level 20L, Anion Gap 11, Blood Urea Nitrogen 12, Creatinine 0.81, Estimat Glomerular Filtration Rate 87, BUN/Creatinine Ratio 15, Glucose Level 86, Calcium Level 9.3, Corrected Calcium 9.1, Magnesium Level 2.0, Total Bilirubin 1.1H, Aspartate Amino Transf (AST/SGOT) 14, Alanine Aminotransferase (ALT/SGPT) 17, Alkaline Phosphatase 62, Total Protein 7.2, Albumin 4.2 Microbiology 01/12/23 MRSA Screen - Final, Complete MRSA not isolated Laboratory Tests 01/12/23 15:35 01/13/23 03:45 01/14/23 05:13 A/P: Assessment: Sinus node dysfunction which was possibly being exacerbated by Ropinirole (new medication) - episode of bradycardia and escape junctional rhythm with a heart rate in the upper 30s seen on tele strips of 01-12-23 - has had no further episodes of bradycardia since d/c ropinirole- maintaining SR HR 60's Palpitations. - 24 hr Holter of 01/19/20 shows sinus rhythm with sinus arrhythmia and isolated and coupled PACs - TSH normal on 01-12-23 Nonspecific chest discomfort (currently not reporting any) - MPI of 01/05/2020 shows no ischemia or infarction, LVEF 71% - Currently not reporting any symptoms - Echo of 01/04/20 shows LVEF 60-65%, marylu 2 diastolic dyfunction, PASP 20-25 mmHg - Echocardiogram of 06-16-2022 at [facility] by Dr. Thrasher showed LVEF 65-70% - MPI at [facility] in [place], [place] by Dr. Briscoe showed a small nonreversible defect involving the septal wall, with an adjacent sm to med sized reversible defect in the ant and apical iglesias. A sm to mod sized nonreversible defect involving the inferoseptal and inferior iglesias. - MPI at [facility] in [place], [place] (Dr Thrasher 06/29/22): Left dominant system without any angiographic abn of stenosis of the coronaries, LVEF 55% Aortic enlargement - Mild ascending aortic enlargement (alfredo 4.1 cm) on CT angio of 12/18/19 - CINDI at [facility] [place] on 06/29/22: LVEF 60-65%, no significant valvular disase, mildly dilated ascending aorta (4.1 cm diameter) Obesity - with BMI approx 33 Pulmonary - H/o asthma - COPD Hyperlipidemia - statin - followed by PCP Borderline abnormal ECG: - NSR with incomplete RBBB and LAFB on ECG of 12/28/19, unchanged on 04/30/22 GERD - managed by PCP Chronic mild leucocytosis - She has [facility], and reports that nothing significant was found Denies sleep apnea. States home test in 2019 was negative Plan: * No arrhythmia or recurrence of symptoms since d/c ropinirole and hydration and correction of electrolyte balance * D/c today. 2-week Zio patch and outpt f/u recommend * Advised return to ER for recurrence of symptoms CHRIS ACEVEDO MD FACP FAC CCDS Jan 14, 2023 12:01
[2023-01-14 12:20] VITALS: BP 121/76
--- NOTE | 2023-01-14 12:52 | Progress Note ---
JONES 01/14/23 1252: Progress Note Hospital course: 52 y/o female presented to the ED with symptomatic bradycardia after working out. She said she felt dizzy and lightheaded and her at home monitor read her rate in the 40's along with low pulse ox, but when she arrived she denied SOB, chest pain, or weakness. She has a history of COPD, asthma, hypothyroidism, GERD, IBS, and mild scoliosis. To not she does not have any smoking history. Her history also showed CTA on 12/18/19 noting mild ascending aortic enlargement, and ECG on 12/28/19 showed normal sinus rhythm with incomplete RBBB and LAFB , unchanged on 04/30/22. While in the ED she had multiple episodes of bradycardia and her cardiology consult noted sinus pauses with a junctional escape rhythm. Patient was moved to the ICU for monitoring but during her stay she did not report any recurrence of symptoms and felt no pain or discomfort. Vitals remained stable so she was moved to the [facility] floor for monitoring. Echo on 01/13/23 noted pulmonary artery pressure to be 30-35mmHg. No further symptoms occurred and patient was able to ambulate around the floor without any SOB, dizziness, N/V, or chest pain. Cardiology consult recommended patient should get a heart monitor before discharge on 01/14/23. JESSICA SAMPSON DO 01/14/23 2008: Supervisory-Addendum Brief Verification & Attestation Participated in pt care: history, MDM, physical Personally performed: exam, history, MDM, supervision of care Care discussed with: Medical Student Procedures: n/a Results interpretation: Verified all documentation Verification and Attestation of Medical Student E/M Service A medical student performed and documented this service in my presence. I reviewed and verified all information documented by the medical student and made modifications to such information, when appropriate. I personally performed the physical exam and medical decision making. Jessica Sampson Jan 14, 2023,20:08 JONES Jan 14, 2023 12:52 JESSICA SAMPSON DO Jan 14, 2023 20:08
== END 2023-01-14 12:20 | disposition home or self-care (01) ==
LOC: EDUNIT# 15:07 → ER 15:08 → ICU 17:51 → 4TH 01-13 14:30
PROVIDERS: ADMIT Internal Medicine; ATTEND Internal Medicine
DX: I49.5 Sick sinus syndrome (principal); R00.2 Palpitations; R07.89 Other chest pain; J44.9 Chronic obstructive pulmonary disease, unspecified; E03.9 Hypothyroidism, unspecified; J45.909 Unspecified asthma, uncomplicated; E66.9 Obesity, unspecified; I35.8 Other nonrheumatic aortic valve disorders; E78.5 Hyperlipidemia, unspecified; K21.9 Gastro-esophageal reflux disease without esophagitis; R94.31 Abnormal electrocardiogram [ECG] [EKG]; D72.829 Elevated white blood cell count, unspecified; Z68.33 Body mass index [BMI] 33.0-33.9, adult; Z79.890 Hormone replacement therapy
CPT/HCPCS: 36415; 71045; 80053; 80061; 83735; 84100; 84443; 84484; 85025; 85610; 85730; 87081; 93005; 93306; 96366; 96372; 96375; 96376; G0378